=== PATIENT | female | born 1935 | race Caucasian/White ===

== ENCOUNTER 2019-06-06 17:34 | Inpatient (IN) | payer MEDICARE ==
[2019-06-06] MEDS: traMADol HCl 50 MG TAB PO PRN (20:50)
[2019-06-06] MEDS: Enoxaparin Sodium 60 MG/0.6 ML SYRINGE SC SCH (20:51)
[2019-06-06] MEDS: Senokot S 8.6-50 MG TAB PO SCH (20:51)
[2019-06-07] MEDS: Acetaminophen 325 MG TAB PO SCH ×4 (02:03→17:51)
[2019-06-07 05:50] LABS: Anion Gap 14 mmol/L (10-20); BUN (Urea Nitrogen) 9 mg/dL (9.8-20.1); Calc. Creatinine Clearance 73 mL/min (70-130); Carbon Dioxide 29 mmol/L (23-31); Chloride 97 mmol/L (98-107); Estimated GFR-MDRD Greater than 90; Glucose 123 mg/dL (83-110); Potassium 4.2 mmol/L (3.5-5.1); Sodium 136 mmol/L (136-145)
[2019-06-07 06:01] LABS: Band 2 % (5-11); Eosinophils 4 % (0-10); Hemoglobin 10.7 g/dL (12.0-16.0); Lymphocytes 6 % (21-51); MDiff Complete? YES; Mean Corpuscular HGB CONC 31.6 g/dL (32.0-36.0); Mean Corpuscular Hemoglobin 31.4 pg (27.0-31.0); Mean Corpuscular Volume 99.4 fL (78.0-98.0); Monocytes 6 % (0-10); Neutrophil 82 % (42-75); Platelet Count 319 thou/uL (130-400); Platelet Morphology Comment Appears Adequate; RBC Distribution Width 17.6 % (11.5-14.5); RBC Morphology Normal; Red Blood Cell (RBC) Count 3.41 mill/uL (4.20-5.40); White Blood Cell (WBC) Count 19.5 thou/uL (4.8-10.8)
[2019-06-07] MEDS: traMADol HCl 50 MG TAB PO PRN (07:33)
[2019-06-07] MEDS: CeleCOXIB 100 MG CAP PO SCH (09:21)
[2019-06-07] MEDS: Senokot S 8.6-50 MG TAB PO SCH ×2 (09:21→20:09)
[2019-06-07] MEDS: FLUoxetine HCl 20 MG CAP PO SCH (09:21)
[2019-06-07] MEDS: Enoxaparin Sodium 60 MG/0.6 ML SYRINGE SC SCH ×2 (09:22→20:09)
[2019-06-07] MEDS: Polyethylene Glycol 3350 17 GM Packet PO SCH (09:22)
--- NOTE | 2019-06-07 14:28 | HP ---
CHIEF COMPLAINT: Left hip fracture, status post fall, requiring intramedullary nailing and atrial fibrillation for therapy. BRIEF HISTORY: This is a pleasant 83-year-old female, who apparently fell while trying to get to the bathroom. She was evaluated in the emergency room and was noted to have a left hip fracture. She underwent intramedullary nailing. Her Coumadin levels were reversed with vitamin K. Postoperatively, she did have episode of atrial fibrillation with RVR requiring adjustment of medications including Cardizem and beta blockers. She was felt to be stable enough to come to us for therapy. She is currently being bridged with Lovenox until her INR becomes therapeutic. The patient is up in her chair and denies any complaints. She does have some dysphasia from her prior CVA. She denies any chest pain or shortness of breath. No family at bedside. PAST MEDICAL HISTORY: 1. Atrial fibrillation with RVR. 2. Adrenal insufficiency. 3. History of CVA. 4. Dyslipidemia. 5. Hypertension. 6. Frequent urinary tract infections. 7. Osteoarthritis. 8. Depression and anxiety. PAST SURGICAL HISTORY: 1. Right breast lumpectomy. 2. Recent left hip intramedullary nailing. PSYCHOSOCIAL HISTORY: Lives at home with her spouse, who is blind. No documented tobacco, alcohol, or recreational drug abuse. FAMILY HISTORY: Noncontributory to current admission. REVIEW OF SYSTEMS: CARDIOVASCULAR SYSTEM: Denies any chest pain, shortness of breath, palpitations, PND, orthopnea, or pedal edema. RESPIRATORY SYSTEM: Denies any chronic cough, expectoration, or pleuritic type chest pain. GASTROINTESTINAL SYSTEM: Denies any nausea, vomiting, diarrhea, constipation, hematemesis, melena, or hematochezia. GENITOURINARY SYSTEM: Denies any frequency, urgency, dysuria, or hematuria. CENTRAL NERVOUS SYSTEM: Some residual deficits from her prior CVA. EXTREMITIES: Does have frequent joint pains from her arthritis. HEENT: Denies any changes with vision, hearing, or swallowing. SKIN: Denies any rash. ALLERGIES: SHE IS ALLERGIC TO ESTROGEN, PENICILLIN, AND PROCAINE. DISCHARGE MEDICATIONS: 1. Tylenol 650 q.6 p.r.n. 2. Celebrex 100 mg daily. 3. Flexeril 5 mg t.i.d. p.r.n. 4. Cardizem CD 300 mg daily. 5. Enoxaparin 60 mg subcu b.i.d. 6. Fluoxetine 20 mg daily. 7. Toprol-XL 100 mg in the afternoon. 8. Zofran ODT q.6 p.r.n. 9. MiraLAX 17 g in 8 ounces of water daily. 10. Senokot S one tablet b.i.d. 11. Tramadol 50 to 100 mg q.6 p.r.n. 12. Warfarin 3 mg on Thursday, Thursday, Thursday, , Thursday and 1.5 mg on Thursday and Thursday. PHYSICAL EXAMINATION: GENERAL: Pleasant 83-year-old female up in her chair and denies any complaints. She is alert and responsive. No family at bedside. VITAL SIGNS: She is afebrile. Heart rate is 100 irregularly irregular, respiratory rate is 20, oxygen saturation 98% on 2 L nasal cannula, and blood pressure is 114/57. HEENT: Normocephalic and atraumatic. Pupils equally reactive to light and accommodation. NECK: No JVD, thyromegaly, cervical lymphadenopathy, or throat exudates. No carotid bruits. CARDIOVASCULAR SYSTEM: S1 and S2 plus irregularly irregular. RESPIRATORY SYSTEM: Normal vesicular breath sounds heard in all lung oates. ABDOMEN: Soft and nontender. Bowel sounds heard in all quadrants. EXTREMITIES: Without cyanosis or clubbing. Trace left leg edema. Left hip incision with dressing. CENTRAL NERVOUS SYSTEM: Awake and responsive. Residual deficits from her prior CVA. LABORATORY DATA: Laboratory values done this morning shows a white count of 19.5, hemoglobin and hematocrit are 10.7 and 33.9. Sodium 136, potassium 4.2, BUN and creatinine are 9 and 0.61. Her white count yesterday was 20.1 and the day before was 20.6. No microbiology reports are pending. Chest x-ray does not show any focal infiltrates suggestive of infection. IMPRESSION: 1. Left hip fracture, status post fall, requiring surgical fixation. 2. Atrial fibrillation with rapid ventricular response. 3. Hypertension. 4. Dyslipidemia. 5. Osteoarthritis. 6. History of cerebrovascular accident with residual deficits. 7. Leukocytosis. PLAN: 1. Continue discharge medications. 2. Check BNP. 3. PT, OT eval and treat. 4. Heart healthy diet. 5. Monitor heart rate and rhythm. 6. DVT prophylaxis. She is currently on Lovenox, but will be transitioned to warfarin once INR is greater than 2. 7. Decubitus precautions. 8. Stress ulcer prophylaxis. 9. Routine laboratory values. 10. Discussed with the patient and nursing in detail. All questions answered. Monitor for any signs or symptoms of infection. Job ID: [id number]
[2019-06-07] MEDS: Warfarin Sodium 3 MG TAB PO SCH (17:51)
[2019-06-08] MEDS: Acetaminophen 325 MG TAB PO SCH ×4 (00:06→17:38)
[2019-06-08] MEDS: Ondansetron ODT 4 MG TAB PO PRN ×2 (00:06→13:23)
[2019-06-08] MEDS: Cyclobenzaprine 10 MG TAB PO PRN (01:10)
[2019-06-08] MEDS: traMADol HCl 50 MG TAB PO PRN ×2 (04:17→20:46)
[2019-06-08 06:06] LABS: INR-International Normal Ratio 1.2; Prothrombin Time 15.3 SEC (12.0-14.7)
[2019-06-08] MEDS: Senokot S 8.6-50 MG TAB PO SCH ×2 (09:11→20:46)
[2019-06-08] MEDS: CeleCOXIB 100 MG CAP PO SCH (09:11)
[2019-06-08] MEDS: Enoxaparin Sodium 60 MG/0.6 ML SYRINGE SC SCH ×2 (09:12→20:47)
[2019-06-08] MEDS: Polyethylene Glycol 3350 17 GM Packet PO SCH (09:14)
[2019-06-08] MEDS: FLUoxetine HCl 20 MG CAP PO SCH (09:14)
[2019-06-08] MEDS: Warfarin Sodium 3 MG TAB PO SCH (17:37)
[2019-06-09] MEDS: Acetaminophen 325 MG TAB PO SCH ×5 (04:28→23:56)
[2019-06-09 06:23] LABS: INR-International Normal Ratio 1.3; Prothrombin Time 16.5 SEC (12.0-14.7)
[2019-06-09] MEDS: CeleCOXIB 100 MG CAP PO SCH (08:46)
[2019-06-09] MEDS: Enoxaparin Sodium 60 MG/0.6 ML SYRINGE SC SCH ×2 (08:47→21:13)
[2019-06-09] MEDS: Polyethylene Glycol 3350 17 GM Packet PO SCH (08:48)
[2019-06-09] MEDS: Senokot S 8.6-50 MG TAB PO SCH ×2 (08:48→21:12)
[2019-06-09] MEDS: FLUoxetine HCl 20 MG CAP PO SCH (08:48)
[2019-06-09] MEDS: traMADol HCl 50 MG TAB PO PRN ×2 (11:05→21:14)
--- NOTE | 2019-06-09 13:51 | PRG ---
DATE OF SERVICE: 06/08/2019 SUBJECTIVE: Ms. Brunner is resting in bed. Denies any complaints. Discussed with nursing. OBJECTIVE: VITAL SIGNS: She is afebrile, heart rate is 102 and irregularly irregular, respiratory rate is 18, oxygen saturation 98% on 1 L, blood pressure 123/65. CARDIOVASCULAR SYSTEM: S1 and S2 plus irregularly irregular. RESPIRATORY SYSTEM: Normal vesicular breath sounds. ABDOMEN: Soft, nontender. Bowel sounds heard in all quadrants. EXTREMITIES: Without cyanosis or clubbing. Peripheral pulses are palpable. CENTRAL NERVOUS SYSTEM: Awake and responsive. IMPRESSION: 1. Atrial fibrillation with rapid ventricular response. 2. Left hip fracture, status post intramedullary nailing. 3. Dyslipidemia. 4. Hypertension. 5. Osteoarthritis. 6. Depression and anxiety. PLAN: 1. Continue current medications. 2. Nutritional support. 3. Heart-healthy diet. 4. Monitor heart rate and rhythm. 5. DVT prophylaxis. She is on warfarin. 6. Decubitus precaution. 7. Stress ulcer prophylaxis. 8. Routine laboratory values. 9. Physical therapy. Job ID: [id number]
--- NOTE | 2019-06-09 14:09 | PRG ---
DATE OF SERVICE: 06/09/2019 SUBJECTIVE: Ms. Brunner has been moved to [facility]. She is resting in bed. She ate half of her lunch. No family at bedside. Denies any questions or concerns. OBJECTIVE: VITAL SIGNS: She is afebrile. Heart rate is 95, respirations 20, oxygen saturation 94% on 3 L, and blood pressure 120/58. CARDIOVASCULAR: S1, S2 plus. RESPIRATORY: Normal vesicular breath sounds. ABDOMEN: Soft, nontender. Bowel sounds heard in all quadrants. EXTREMITIES: Without cyanosis or clubbing. Trace left leg edema. CENTRAL NERVOUS SYSTEM: Awake and responsive. Cranial nerves 2 through 12 intact. Generalized weakness. LABORATORY DATA: Her INR is 1.3. IMPRESSION: 1. Left hip fracture, status post surgical fixation. 2. Atrial fibrillation. 3. Hypertension. 4. Osteoarthritis. 5. Depression and anxiety. PLAN: 1. Continue Lovenox until INR is greater than 2. 2. Monitor heart rate and rhythm. 3. Physical therapy. 4. Orthopedic precautions. 5. Nutritional support. 6. Routine laboratory values. 7. DVT and stress ulcer prophylaxis. Job ID: [id number]
[2019-06-09] MEDS: Warfarin Sodium 3 MG TAB PO SCH (17:19)
[2019-06-10] MEDS: Acetaminophen 325 MG TAB PO SCH ×4 (05:20→23:58)
[2019-06-10 06:15] LABS: INR-International Normal Ratio 1.3; Prothrombin Time 16.4 SEC (12.0-14.7)
[2019-06-10] MEDS: Polyethylene Glycol 3350 17 GM Packet PO SCH (09:39)
[2019-06-10] MEDS: CeleCOXIB 100 MG CAP PO SCH (09:39)
[2019-06-10] MEDS: Senokot S 8.6-50 MG TAB PO SCH ×2 (09:39→20:27)
[2019-06-10] MEDS: FLUoxetine HCl 20 MG CAP PO SCH (09:39)
[2019-06-10] MEDS: Enoxaparin Sodium 60 MG/0.6 ML SYRINGE SC SCH ×2 (09:40→20:26)
[2019-06-10] MEDS: traMADol HCl 50 MG TAB PO PRN (17:01)
[2019-06-10] MEDS: Warfarin Sodium 3 MG TAB PO SCH (17:37)
[2019-06-10] MEDS: Cyclobenzaprine 10 MG TAB PO PRN (20:25)
[2019-06-10 22:16] LABS: Bilirubin Negative (Negative); Blood, Urine Negative (Negative); Clarity Clear (Clear); Glucose, Urine (Dipstick) Negative (Negative); Leukocyte Negative (Negative); Nitrite Negative (Negative); Protein, Urine (Dipstick) Negative (Neg-Trace)
[2019-06-10 22:26] LABS: Bacteria/HPF None Seen HPF (None Seen); RBC/HPF None Seen HPF (0-3); Squamous Epithelial 0-3 HPF (0-3); WBC/HPF None Seen HPF (0-3)
[2019-06-11] MEDS: Ondansetron ODT 4 MG TAB PO PRN (00:35)
[2019-06-11] MEDS: Acetaminophen 325 MG TAB PO SCH ×4 (05:33→23:13)
[2019-06-11 06:10] LABS: INR-International Normal Ratio 1.2; Prothrombin Time 15.4 SEC (12.0-14.7)
[2019-06-11] MEDS: CeleCOXIB 100 MG CAP PO SCH (09:20)
[2019-06-11] MEDS: Senokot S 8.6-50 MG TAB PO SCH ×2 (09:20→20:45)
[2019-06-11] MEDS: FLUoxetine HCl 20 MG CAP PO SCH (09:20)
[2019-06-11] MEDS: Polyethylene Glycol 3350 17 GM Packet PO SCH (09:20)
[2019-06-11] MEDS: Enoxaparin Sodium 60 MG/0.6 ML SYRINGE SC SCH ×2 (09:21→20:45)
[2019-06-11] MEDS: traMADol HCl 50 MG TAB PO PRN (09:24)
[2019-06-11] MEDS: Warfarin Sodium 3 MG TAB PO SCH (17:20)
[2019-06-12] MEDS: Acetaminophen 325 MG TAB PO SCH ×4 (05:39→23:24)
[2019-06-12 06:02] LABS: INR-International Normal Ratio 1.2; Prothrombin Time 14.8 SEC (12.0-14.7)
[2019-06-12] MEDS: FLUoxetine HCl 20 MG CAP PO SCH (09:04)
[2019-06-12] MEDS: Polyethylene Glycol 3350 17 GM Packet PO SCH (09:05)
[2019-06-12] MEDS: Senokot S 8.6-50 MG TAB PO SCH ×2 (09:05→20:46)
[2019-06-12] MEDS: Enoxaparin Sodium 60 MG/0.6 ML SYRINGE SC SCH ×2 (09:05→20:48)
[2019-06-12] MEDS: CeleCOXIB 100 MG CAP PO SCH (09:05)
[2019-06-12] MEDS ORDERED: traMADol HCl 50 MG TAB ONE ×2 (09:09)
[2019-06-12] MEDS: Cyclobenzaprine 10 MG TAB PO PRN (09:10)
[2019-06-12] MEDS: traMADol HCl 50 MG TAB PO PRN (09:11)
[2019-06-12] MEDS: Warfarin Sodium 3 MG TAB PO SCH (17:54)
--- NOTE | 2019-06-12 22:06 | PRG ---
DATE OF SERVICE: 06/11/2019 SUBJECTIVE: The patient feels well, status post left hip fracture and surgical fixation. She is resting in bed, somewhat sleepy. No family at the bedside. No complaints. OBJECTIVE: VITAL SIGNS: Show blood pressure is 114/55, temperature is 97, pulse 87, respirations 18, O2 saturations 98% on room air. LUNGS: Clear. CARDIAC: Shows regular rhythm. ABDOMEN: Soft and nontender. SKIN: Left hip appears to be healing well. ASSESSMENT: 1. Left hip fracture, healing well. 2. Atrial fibrillation. 3. Hypertension. 4. Depression and anxiety. PLAN: 1. Continue PT/OT. 2. Continue rate control and anticoagulation of atrial fibrillation. 3. Continue to monitor vital signs closely. Job ID: [id number]
--- NOTE | 2019-06-12 22:15 | PRG ---
DATE OF SERVICE: 06/12/2019 SUBJECTIVE: The patient lying in bed, resting. No complaints, ready for more therapy tomorrow. OBJECTIVE: VITAL SIGNS: Temperature is 97.3, pulse 104, respirations 18, O2 sats 98% on 2, and blood pressure 134/71. EXTREMITIES: Left hip appears to be healing well. LABORATORY DATA: Urine culture is showing 25,000 to 50,0000 mixed peng. ASSESSMENT: 1. Resolving hip fracture, status post open reduction and internal fixation. 2. Deconditioning, improving with therapy. 3. Depression and anxiety, stable. 4. Atrial fibrillation with rate control, but inadequate anticoagulation. PLAN: Check CBC, comprehensive metabolic panel, PT in the a.m. Continue previous medications. Continue PT and OT. Job ID: [id number]
[2019-06-13] MEDS: Acetaminophen 325 MG TAB PO SCH ×3 (05:15→17:36)
[2019-06-13 05:32] LABS: INR-International Normal Ratio 1.2; Prothrombin Time 15.1 SEC (12.0-14.7)
[2019-06-13 05:45] LABS: ALT (SGPT) 15 U/L (8-55); AST (SGOT) 26 U/L (5-34); Albumin 3.5 g/dL (3.4-4.8); Alkaline Phosphatase 136 U/L (40-110); Anion Gap 14 mmol/L (10-20); BUN (Urea Nitrogen) 17 mg/dL (9.8-20.1); Calc. Creatinine Clearance 64 mL/min (70-130); Calcium 8.9 mg/dL (7.8-10.44); Carbon Dioxide 31 mmol/L (23-31); Chloride 96 mmol/L (98-107); Estimated GFR-MDRD 82; Globulin 3.3 g/dL (2.4-3.5); Glucose 115 mg/dL (83-110); Potassium 4.4 mmol/L (3.5-5.1); Protein, Total 6.8 g/dL (6.0-8.3); Sodium 137 mmol/L (136-145)
[2019-06-13 05:53] LABS: Band 20 % (5-11); Hypochromia MODERATE=16-30 cells (100X) (0-5/hpf); Lymphocytes 9 % (21-51); MDiff Complete? YES; Macrocytosis SLIGHT = 6-15 cells (100X) (0-5/hpf); Mean Corpuscular HGB CONC 30.8 g/dL (32.0-36.0); Mean Corpuscular Hemoglobin 31.5 pg (27.0-31.0); Mean Platelet Volume 6.6 fL (7.4-10.4); Metamyelocyte 7 % (0-0); Monocytes 3 % (0-10); Myelocyte 1 % (0-0); Neutrophil 59 % (42-75); Nucleated RBC 2 % (0); Platelet Count 344 thou/uL (130-400); Platelet Morphology Comment Appears Adequate; RBC Distribution Width 19.5 % (11.5-14.5); Red Blood Cell (RBC) Count 3.19 mill/uL (4.20-5.40); White Blood Cell (WBC) Count 17.6 thou/uL (4.8-10.8)
[2019-06-13] MEDS: CeleCOXIB 100 MG CAP PO SCH (08:52)
[2019-06-13] MEDS: Polyethylene Glycol 3350 17 GM Packet PO SCH (08:53)
[2019-06-13] MEDS: Senokot S 8.6-50 MG TAB PO SCH ×2 (08:53→20:40)
[2019-06-13] MEDS: FLUoxetine HCl 20 MG CAP PO SCH (08:53)
[2019-06-13] MEDS: Enoxaparin Sodium 60 MG/0.6 ML SYRINGE SC SCH ×2 (08:53→20:37)
--- NOTE | 2019-06-13 13:50 | PRG ---
DATE OF SERVICE: 06/13/2019 SUBJECTIVE: Ms. Brunner is sleeping, but arousable. Continues to have some dysphasia. Apparently, doing pretty well with therapy. Discussed with nursing. No family at bedside. OBJECTIVE: VITAL SIGNS: She is afebrile, heart rate 104, respirations 18, oxygen saturation 99% on 2 L, blood pressure 129/63. CARDIOVASCULAR: S1 and S2 plus. RESPIRATORY: Normal vesicular breath sounds. ABDOMEN: Soft, nontender. Bowel sounds heard in all quadrants. EXTREMITIES: Without cyanosis or clubbing. CENTRAL NERVOUS SYSTEM: Awake and responsive. Generalized weakness. LABORATORY VALUES: White count is down to 17.6, H and H are 10 and 32.6. Sodium 137, potassium 4.4, BUN and creatinine are 17 and 0.69. Urine culture is 25,000 to 50,000 mixed skin peng. IMPRESSION: 1. Left hip fracture, status post surgical fixation. 2. Atrial fibrillation. 3. Hypertension. 4. Osteoarthritis. 5. Depression and anxiety. 6. Dysphasia, chronic. PLAN: 1. Continue current medications. Current INR is still 1.2. We will adjust warfarin. 2. Heart healthy diet. 3. Orthopedic precautions. 4. Nutritional support. 5. Routine laboratory values. 6. Stress ulcer prophylaxis. 7. Decubitus precautions. Job ID: [id number]
[2019-06-13] MEDS: Warfarin Sodium 5 MG TAB PO SCH (16:38)
[2019-06-13] MEDS: traMADol HCl 50 MG TAB PO PRN (16:39)
[2019-06-13] MEDS ORDERED: Warfarin Sodium 3 MG TAB PO SCH (17:00)
[2019-06-14] MEDS: Acetaminophen 325 MG TAB PO SCH ×5 (00:16→22:27)
[2019-06-14] MEDS: CeleCOXIB 100 MG CAP PO SCH (08:41)
[2019-06-14] MEDS: Enoxaparin Sodium 60 MG/0.6 ML SYRINGE SC SCH ×2 (08:41→20:45)
[2019-06-14] MEDS: FLUoxetine HCl 20 MG CAP PO SCH (08:42)
[2019-06-14] MEDS: Polyethylene Glycol 3350 17 GM Packet PO SCH (08:42)
[2019-06-14] MEDS: Senokot S 8.6-50 MG TAB PO SCH ×3 (08:42→22:26)
[2019-06-14] MEDS: Warfarin Sodium 5 MG TAB PO SCH (17:19)
[2019-06-14] MEDS: traMADol HCl 50 MG TAB PO PRN (22:26)
[2019-06-15] MEDS: Acetaminophen 325 MG TAB PO SCH ×5 (05:13→21:05)
[2019-06-15 08:14] LABS: INR-International Normal Ratio 1.8; Prothrombin Time 20.7 SEC (12.0-14.7)
[2019-06-15] MEDS: FLUoxetine HCl 20 MG CAP PO SCH (09:29)
[2019-06-15] MEDS: CeleCOXIB 100 MG CAP PO SCH (09:29)
[2019-06-15] MEDS: Enoxaparin Sodium 60 MG/0.6 ML SYRINGE SC SCH ×2 (09:29→20:18)
[2019-06-15] MEDS: Polyethylene Glycol 3350 17 GM Packet PO SCH (09:29)
[2019-06-15] MEDS: Senokot S 8.6-50 MG TAB PO SCH ×2 (09:30→20:18)
--- NOTE | 2019-06-15 13:21 | PRG ---
DATE OF SERVICE: 06/14/2019 SUBJECTIVE: Ms. Brunner is doing well. Sleeping, but arousable. Denies any questions or concerns. OBJECTIVE: VITAL SIGNS: She is afebrile, heart rate is 113, irregularly irregular, respiratory rate is 20, oxygen saturation 94% on room air, blood pressure 124/66. CARDIOVASCULAR SYSTEM: S1 and S2 plus irregularly irregular. RESPIRATORY SYSTEM: Normal vesicular breath sounds heard in all lung oates. ABDOMEN: Soft and nontender. Bowel sounds heard in all quadrants. EXTREMITIES: Without cyanosis or clubbing. Peripheral pulses are palpable CENTRAL NERVOUS SYSTEM: Grossly nonfocal except for chronic dysphasia. LABORATORY DATA: Laboratory value shows an INR of 1.8. IMPRESSION: 1. Atrial fibrillation. 2. Hypertension. 3. Osteoarthritis. 4. Depression and anxiety. 5. Dysphagia, chronic. PLAN: 1. Continue current medications. 2. Nutritional support with heart healthy diet. 3. Orthopedic precautions. 4. DVT and stress ulcer prophylaxis. She is on warfarin and Lovenox. 5. Decubitus precaution. 6. Monitor heart rate and rhythm. 7. Therapy. Job ID: [id number]
--- NOTE | 2019-06-15 13:21 | PRG ---
DATE OF SERVICE: 06/15/2019 SUBJECTIVE: Ms. Brunner is up in her chair and just finished her lunch. She denies any questions or concerns. She is happy with her progress. OBJECTIVE: VITAL SIGNS: She is afebrile, heart rate is 103, respirations 20, oxygen saturation 95% on room air, and blood pressure 118/75. CARDIOVASCULAR SYSTEM: S1 and S2 plus. Irregularly irregular. RESPIRATORY SYSTEM: Normal vesicular breath sounds heard in all lung oates. ABDOMEN: Soft and nontender. Bowel sounds in all quadrants. EXTREMITIES: Without cyanosis or clubbing. CENTRAL NERVOUS SYSTEM: Grossly nonfocal. IMPRESSION: 1. Atrial fibrillation. 2. Left hip fracture, status post open reduction and internal fixation. 3. Dyslipidemia. 4. Hypertension. 5. Osteoarthritis. 6. 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 PLAN: 1. Continue current medications. 2. Nutritional support. 3. Orthopedic precautions. 4. Monitor heart rate and rhythm. 5. Adjust warfarin. 6. Monitor INR. 7. Continue Lovenox until INR is greater than 2. 8. Continue therapy. Job ID: [id number]
[2019-06-15] MEDS: Warfarin Sodium 5 MG TAB PO SCH (17:42)
[2019-06-15] MEDS: traMADol HCl 50 MG TAB PO PRN (21:05)
[2019-06-16] MEDS: Acetaminophen 325 MG TAB PO SCH ×3 (05:45→17:27)
[2019-06-16 06:03] LABS: INR-International Normal Ratio 2.1; Prothrombin Time 23.1 SEC (12.0-14.7)
[2019-06-16 06:15] LABS: Anion Gap 15 mmol/L (10-20); BUN (Urea Nitrogen) 14 mg/dL (9.8-20.1); Calc. Creatinine Clearance 65 mL/min (70-130); Carbon Dioxide 25 mmol/L (23-31); Chloride 102 mmol/L (98-107); Estimated GFR-MDRD 83; Glucose 126 mg/dL (83-110); Hemoglobin 10.7 g/dL (12.0-16.0); Hypochromia SLIGHT = 6-15 cells (100X) (0-5/hpf); MDiff Complete? YES; Macrocytosis SLIGHT = 6-15 cells (100X) (0-5/hpf); Mean Corpuscular HGB CONC 31.9 g/dL (32.0-36.0); Mean Corpuscular Hemoglobin 33.2 pg (27.0-31.0); Platelet Count 385 thou/uL (130-400); Platelet Morphology Comment Appears Adequate; Potassium 4.4 mmol/L (3.5-5.1); RBC Distribution Width 20.5 % (11.5-14.5); Red Blood Cell (RBC) Count 3.23 mill/uL (4.20-5.40); Sodium 138 mmol/L (136-145); White Blood Cell (WBC) Count 15.8 thou/uL (4.8-10.8)
[2019-06-16] MEDS: Enoxaparin Sodium 60 MG/0.6 ML SYRINGE SC SCH (07:50)
[2019-06-16] MEDS: FLUoxetine HCl 20 MG CAP PO SCH (08:55)
[2019-06-16] MEDS: Senokot S 8.6-50 MG TAB PO SCH ×2 (08:55→21:04)
[2019-06-16] MEDS: CeleCOXIB 100 MG CAP PO SCH (08:56)
[2019-06-16] MEDS: Polyethylene Glycol 3350 17 GM Packet PO SCH (08:56)
--- NOTE | 2019-06-16 14:23 | PRG ---
DATE OF SERVICE: 06/16/2019 SUBJECTIVE: Ms. Brunner is doing the same. Denies any complaints. Resting comfortably. Discussed with therapy and they want to make sure she has some help at home, but they said she is pretty close to being ready for discharge. OBJECTIVE: VITAL SIGNS: She is afebrile. Heart rate is 89, respirations 18, oxygen saturation 93% on room air, and blood pressure 116/66. CARDIOVASCULAR SYSTEM: S1 and S2 plus. RESPIRATORY SYSTEM: Normal vesicular breath sounds. ABDOMEN: Soft and nontender. Bowel sounds heard in all quadrants. EXTREMITIES: Without cyanosis or clubbing. Peripheral pulses are palpable. CENTRAL NERVOUS SYSTEM: Improving deconditioning. LABORATORY VALUES: Her INR is 2.1. Sodium 138, potassium 4.4, BUN and creatinine are 14 and 0.68. White count is down to 15.8, H and H are 10.7 and 33.5. IMPRESSION: 1. Left hip fracture, status post open reduction and internal fixation. 2. Atrial fibrillation with rapid ventricular response. 3. Dyslipidemia. 4. Hypertension. 5. Osteoarthritis. 6. Dysphagia from old cerebrovascular accident. PLAN: 1. Stop Lovenox. 2. Heart healthy diet. 3. Monitor heart rate and rhythm. 4. Consult Case Management for discharge planning. 5. Continue warfarin 5 mg daily. 6. Continue therapy. 7. Discussed with the patient and therapy as well as nursing. Job ID: [id number]
[2019-06-16] MEDS: Warfarin Sodium 5 MG TAB PO SCH (17:27)
[2019-06-17] MEDS: Acetaminophen 325 MG TAB PO SCH ×5 (00:13→20:36)
[2019-06-17 05:32] LABS: INR-International Normal Ratio 2.4; Prothrombin Time 25.8 SEC (12.0-14.7)
[2019-06-17] MEDS: CeleCOXIB 100 MG CAP PO SCH (08:57)
[2019-06-17] MEDS: Polyethylene Glycol 3350 17 GM Packet PO SCH (08:57)
[2019-06-17] MEDS: FLUoxetine HCl 20 MG CAP PO SCH (08:57)
[2019-06-17] MEDS: Senokot S 8.6-50 MG TAB PO SCH ×2 (08:57→20:36)
[2019-06-17] MEDS: Warfarin Sodium 5 MG TAB PO SCH (17:06)
[2019-06-17] MEDS: traMADol HCl 50 MG TAB PO PRN (17:10)
[2019-06-18] MEDS: Acetaminophen 325 MG TAB PO SCH ×3 (05:23→17:32)
[2019-06-18 05:45] LABS: INR-International Normal Ratio 2.4; Prothrombin Time 26.3 SEC (12.0-14.7)
[2019-06-18] MEDS: CeleCOXIB 100 MG CAP PO SCH (08:53)
[2019-06-18] MEDS: FLUoxetine HCl 20 MG CAP PO SCH (08:54)
[2019-06-18] MEDS: Senokot S 8.6-50 MG TAB PO SCH ×2 (08:54→20:53)
[2019-06-18] MEDS: Polyethylene Glycol 3350 17 GM Packet PO SCH (08:54)
[2019-06-18] MEDS: Warfarin Sodium 5 MG TAB PO SCH (17:31)
[2019-06-19] MEDS: Acetaminophen 325 MG TAB PO SCH ×4 (00:12→17:33)
[2019-06-19 00:17] VITALS: BMI 23.7
[2019-06-19 05:41] LABS: INR-International Normal Ratio 2.7; Prothrombin Time 28.4 SEC (12.0-14.7)
[2019-06-19] MEDS: CeleCOXIB 100 MG CAP PO SCH (08:13)
[2019-06-19] MEDS: FLUoxetine HCl 20 MG CAP PO SCH (08:14)
[2019-06-19] MEDS: Senokot S 8.6-50 MG TAB PO SCH ×2 (08:14→20:50)
[2019-06-19] MEDS: Polyethylene Glycol 3350 17 GM Packet PO SCH (08:14)
[2019-06-19] MEDS: Warfarin Sodium 5 MG TAB PO SCH (17:33)
[2019-06-20] MEDS: Acetaminophen 325 MG TAB PO SCH ×4 (00:11→17:31)
[2019-06-20] MEDS: traMADol HCl 50 MG TAB PO PRN ×2 (00:12→09:33)
[2019-06-20 05:47] LABS: INR-International Normal Ratio 2.6; Prothrombin Time 27.8 SEC (12.0-14.7)
[2019-06-20] MEDS: Senokot S 8.6-50 MG TAB PO SCH (09:25)
[2019-06-20] MEDS: Polyethylene Glycol 3350 17 GM Packet PO SCH (09:25)
[2019-06-20] MEDS: FLUoxetine HCl 20 MG CAP PO SCH (09:25)
[2019-06-20] MEDS: CeleCOXIB 100 MG CAP PO SCH (09:29)
--- NOTE | 2019-06-20 13:35 | PRG ---
DATE OF SERVICE: 06/20/2019 SUBJECTIVE: Ms. Brunner is resting in bed. Denies any complaints. Discussed with therapy and they stated the patient should be ready to be discharged with possible home health later this week. OBJECTIVE: VITAL SIGNS: She is afebrile. Heart rate 92, respirations 20, oxygen saturation 95% on room air, blood pressure 120/57. CARDIOVASCULAR SYSTEM: S1 and S2 plus. RESPIRATORY SYSTEM: Normal vesicular breath sounds. ABDOMEN: Soft, nontender. Bowel sounds heard in all quadrants. EXTREMITIES: Without cyanosis or clubbing. Peripheral pulses are palpable. CENTRAL NERVOUS SYSTEM: Grossly nonfocal. IMPRESSION: 1. Left hip fracture, status post open reduction and internal fixation. 2. Atrial fibrillation with rapid ventricular response, now well controlled. 3. Dyslipidemia. 4. Hypertension. 5. Osteoarthritis. 6. Dysphagia from old cerebrovascular accident. PLAN: 1. Continue current medications. 2. Therapeutic warfarin. 3. Physical therapy. 4. Orthopedic precautions. 5. Monitor heart rate and rhythm. 6. Nutritional support. 7. Discharge planning. Job ID: [id number]
[2019-06-20] MEDS: Warfarin Sodium 5 MG TAB PO SCH (17:31)
[2019-06-21] MEDS: traMADol HCl 50 MG TAB PO PRN ×2 (00:04→09:46)
[2019-06-21] MEDS: Acetaminophen 325 MG TAB PO SCH ×3 (00:04→12:45)
[2019-06-21] MEDS: Senokot S 8.6-50 MG TAB PO SCH ×2 (00:05→09:37)
[2019-06-21 05:46] LABS: INR-International Normal Ratio 3.1
[2019-06-21 08:02] VITALS: BP 108/56; TEMP 97.7
[2019-06-21] MEDS: CeleCOXIB 100 MG CAP PO SCH (09:36)
[2019-06-21] MEDS: FLUoxetine HCl 20 MG CAP PO SCH (09:37)
[2019-06-21] MEDS: Polyethylene Glycol 3350 17 GM Packet PO SCH (09:37)
--- NOTE | 2019-06-21 14:29 | DIS ---
DATE OF ADMISSION: 06/06/2019 DATE OF DISCHARGE: 06/21/2019 PRINCIPAL DIAGNOSIS: Left hip fracture, status post open reduction and internal fixation. SECONDARY DIAGNOSES: 1. Atrial fibrillation. 2. Adrenal insufficiency. 3. Dyslipidemia. 4. Hypertension. 5. Osteoarthritis. 6. Depression and anxiety. 7. History of cerebrovascular accident with persistent dysphasia. COMPLICATIONS: None. ADVERSE REACTIONS: None. PROCEDURES: None. CONSULTATIONS: Physical Therapy and Occupational Therapy. HOSPITAL COURSE: The patient was transferred here after a fall resulting in left hip fracture. She underwent intramedullary nailing. She did develop atrial fibrillation postoperatively requiring adjustment of medications. She was transitioned to Lovenox for the surgery and was resumed back on her warfarin. Her INR is therapeutic, and she is off her Lovenox. She normally takes 3 mg whole tablet alternating with half tablet, but that did not work for her here. She has been on 5 mg, where she is currently getting supratherapeutic, so she probably will do well on 3 mg daily. PHYSICAL EXAMINATION: VITAL SIGNS: On the day of discharge, the patient is afebrile, heart rate is 79, respirations 18, oxygen saturation 95% on room air, and blood pressure 108/56. CARDIOVASCULAR SYSTEM: S1 and S2 plus. RESPIRATORY SYSTEM: Normal vesicular breath sounds. ABDOMEN: Soft and nontender. Bowel sounds heard in all quadrants. EXTREMITIES: Without cyanosis or clubbing. Left hip incision is healthy. CENTRAL NERVOUS SYSTEM: Awake and responsive. Persistent dysphasia. Grossly nonfocal from a motor system standpoint. LABORATORY DATA: Last laboratory values were done on June 16, where her white count was down to 15.8, it was as high as 19.5, H and H are 10.7 and 33.5. INR today is 3.1. Chemistry; sodium 138, potassium 4.4, BUN and creatinine are 14 and 0.68. DISCHARGE MEDICATIONS: 1. Tylenol 650 q.6 p.r.n. 2. Celebrex 100 mg daily. 3. Cardizem CD 180 mg daily. 4. Prozac 20 mg daily. 5. Toprol-XL 100 mg daily. 6. MiraLAX 17 g in 8 ounces of water daily. 7. Warfarin 3 mg daily. 8. Tramadol 50 mg p.o. q.6 p.r.n. and I will be sending that separately through my EMR. All the other prescriptions were sent for a month's supply to [facility] here in [place] since it is raining. Her usual preferred pharmacy is [email or web address], but I spoke to her caregiver, Clair Nugent. DISCHARGE INSTRUCTIONS: 1. Continue heart healthy diet. 2. Orthopedic precautions. 3. Consult home health for home PT/OT. 4. Outpatient followup with PCP in the next 5 to 7 days and outpatient followup with Orthopedic Surgery in 2 weeks. Family was advised to call us with any questions or concerns. For full details, please see chart. Total time spent on this discharge 35 minutes. Job ID: [id number]
[2019-06-21] MEDS ORDERED: Warfarin Sodium 5 MG TAB PO SCH (17:00)
== END 2019-06-21 14:30 | disposition home health service (06) | DRG 560 ==
LOC: NAV ACUTE 17:34
PROVIDERS: ADMIT Internal Medicine; ATTEND Internal Medicine
DX: S72.002D Fracture of unspecified part of neck of left femur, subsequent encounter for closed fracture with routine healing (principal); E27.40 Unspecified adrenocortical insufficiency; I97.191 Other postprocedural cardiac functional disturbances following other surgery; E78.5 Hyperlipidemia, unspecified; I10 Essential (primary) hypertension; M19.91 Primary osteoarthritis, unspecified site; F32.9 Major depressive disorder, single episode, unspecified; F41.9 Anxiety disorder, unspecified; Z79.01 Long term (current) use of anticoagulants; Z79.899 Other long term (current) drug therapy; Z88.0 Allergy status to penicillin; Z88.8 Allergy status to other drugs, medicaments and biological substances; D72.829 Elevated white blood cell count, unspecified; W18.30XD Fall on same level, unspecified, subsequent encounter; I69.391 Dysphagia following cerebral infarction; R13.10 Dysphagia, unspecified; R53.81 Other malaise
CPT/HCPCS: 36415; 80048; 80053; 81001; 83880; 85025; 85610; 87086; J1650; Q0162

== ENCOUNTER 2019-10-24 10:30 | Emergency (ER) | payer MEDICARE ==
[2019-10-24] MEDS ORDERED: Cefepime 2 GM VIAL ONE (11:56)
[2019-10-24 12:07] LABS: ALT (SGPT) 22 U/L (8-55); AST (SGOT) 24 U/L (5-34); Albumin 4.2 g/dL (3.4-4.8); Alkaline Phosphatase 130 U/L (40-110); Anion Gap 15 mmol/L (10-20); BUN (Urea Nitrogen) 18 mg/dL (9.8-20.1); Bilirubin, Total 0.8 mg/dL (0.2-1.2); Calc. Creatinine Clearance 0 mL/min (70-130); Calcium 8.9 mg/dL (7.8-10.44); Carbon Dioxide 28 mmol/L (23-31); Chloride 101 mmol/L (98-107); Estimated GFR-MDRD 71; Globulin 3.3 g/dL (2.4-3.5); Glucose 114 mg/dL (83-110); Potassium 4.3 mmol/L (3.5-5.1); Protein, Total 7.5 g/dL (6.0-8.3); Sodium 140 mmol/L (136-145)
[2019-10-24 12:09] LABS: Hemoglobin 12.4 g/dL (12.0-16.0); Mean Corpuscular HGB CONC 30.7 g/dL (32.0-36.0); Mean Corpuscular Hemoglobin 29.9 pg (27.0-31.0); Mean Corpuscular Volume 97.2 fL (78.0-98.0); Mean Platelet Volume 8.2 fL (7.4-10.4); Platelet Count 392 thou/uL (130-400); RBC Distribution Width 17.2 % (11.5-14.5); Red Blood Cell (RBC) Count 4.16 mill/uL (4.20-5.40); White Blood Cell (WBC) Count 11.7 thou/uL (4.8-10.8)
[2019-10-24 12:12] LABS: %Lymphocytes 11.3 % (21.0-51.0); %Monocytes 4.3 % (0.0-10.0); %Neutrophils 77.8 % (42.0-75.0)
[2019-10-24 12:13] LABS: #Basophils 0.7 thou/uL (0.0-0.2); #Eosinphils 0.1 thou/uL (0.0-0.7); #Lymphocytes 1.3 thou/uL (1.20-3.40); #Monocytes 0.5 thou/uL (0.11-0.59); #Neutrophils 9.1 thou/uL (1.40-6.50); %Basophils 5.7 % (0.0-1.0)
== END 2019-10-24 13:07 | disposition home or self-care (01) ==
LOC: NAV ERS 10:30
DX: L03.116 Cellulitis of left lower limb (principal); L03.115 Cellulitis of right lower limb; I48.20 Chronic atrial fibrillation, unspecified; E78.5 Hyperlipidemia, unspecified; E78.00 Pure hypercholesterolemia, unspecified; I10 Essential (primary) hypertension; Z79.899 Other long term (current) drug therapy; Z79.01 Long term (current) use of anticoagulants
CPT/HCPCS: 80053; 82550; 83605; 84484; 85025; 87040; 93005; 96365; 96375; J0692

== ENCOUNTER 2020-02-18 12:44 | Inpatient (IN) | payer MEDICARE ==
[2020-02-18 13:23] VITALS: BMI 22.0
[2020-02-18] MEDS ORDERED: Zolpidem Tartrate 5 MG TAB PO PRN (15:25)
[2020-02-18] MEDS ORDERED: Milk Of Magnesia 30 ML UDCUP PO PRN (15:25)
--- NOTE | 2020-02-18 16:08 | HP ---
CHIEF COMPLAINT: The patient with right hip fracture, status post surgical fixation for therapy. BRIEF HISTORY: This is a pleasant 84-year-old female, who is known to me from her previous admission here to [facility]. She apparently fell at home and noticed right hip pain. Workup in the emergency room showed a right hip fracture. She was also noted to be therapeutic on her warfarin. CT scan was done and it showed a right-sided pleural effusion and bilateral ground-glass opacities. She was empirically started on ceftriaxone and Zithromax. Her coagulopathy was reversed with vitamin K. She underwent surgical fixation of her hip without any issues. She has remained afebrile. A COVID-19 test was done, which was negative. She was felt to need therapy and so was referred here. Since she had this ground-glass opacities, it was felt that it is safer to get Infectious Disease opinion before we got her transferred over here. Dr. Wallace spoke with Dr. Cartwright and apparently Dr. Cartwright is comfortable that this is not COVID-19 and the patient should be fine. Plan is to continue empiric Levaquin for about 5 more days. She is back on her warfarin. The patient is currently resting in bed and denies any concerns. She does have chronic dysphagia. No issues with swallowing. No family at bedside. Discussed with nursing. PAST MEDICAL HISTORY: 1. Atrial fibrillation. 2. Hypertension. 3. Dyslipidemia. 4. History of CVA and TIA. 5. History of breast cancer. 6. History of anxiety and depression. 7. Osteoarthritis. PAST SURGICAL HISTORY: 1. Left hip fracture, status post surgical fixation. 2. Breast lumpectomy. FAMILY HISTORY: Noncontributory to current admission. ALLERGIES: SHE IS ALLERGIC TO PENICILLIN, ESTROGEN, AND PROCAINE. REVIEW OF SYSTEMS: CARDIOVASCULAR: Denies any chest pain, shortness of breath, palpitations, PND, orthopnea, or pedal edema. RESPIRATORY SYSTEM: Denies any chronic cough, expectoration, or pleuritic-type chest pain. GASTROINTESTINAL SYSTEM: Denies any nausea, vomiting, diarrhea, constipation, hematemesis, melena, or hematochezia. GENITOURINARY SYSTEM: Denies any frequency, urgency, dysuria, or hematuria. She does have a history of frequent urinary tract infections. CENTRAL NERVOUS SYSTEM: Denies any focal numbness, weakness, or fainting spells. She does have the residual chronic dysphagia from her prior CVA. Denies any issues with swallowing. EXTREMITIES: Complains of right hip pain. SKIN: Denies any rash. HEENT: Denies any difficulty with vision, hearing, or swallowing. PSYCHOSOCIAL HISTORY: Denies any tobacco, alcohol, or recreational drug abuse. Her spouse recently . Her daughter helps her. MEDICATIONS: She has been transferred here on the following medications: 1. Tylenol 650 q.6 hours p.r.n. 2. Calcium carbonate. 3. Vitamin D3 one tablet b.i.d. 4. Cardizem CD (diltiazem), I have both 180 and 120 mg immediate release for the morning. I will have to check and clarify. 5. Lovenox 60 mg subcu b.i.d. 6. Fluoxetine 20 mg daily. 7. [place] 1 to 2 tablets q.6 hours p.r.n. pain. 8. p.o. daily as needed. 9. Metoprolol succinate (Toprol-XL) 100 mg daily. 10. Pantoprazole 40 mg daily. 11. MiraLAX 17 g in 8 ounces of water daily. 12. Senokot S 1 tablet b.i.d. 13. Warfarin 3 mg at bedtime. 14. Ambien 5 mg at bedtime. PHYSICAL EXAMINATION: GENERAL: This is a pleasant 84-year-old female, who is resting in bed and is not in any distress. She responds appropriately to questions. No family at bedside. VITAL SIGNS: She is afebrile. Heart rate is 93, respirations 22, oxygen saturation 94% on room air, blood pressure is 117/56. HEENT: Normocephalic, atraumatic. Pupils are equally reactive to light and accommodation. NECK: No JVD, thyromegaly, cervical adenopathy, or throat exudates. No carotid bruits. CARDIOVASCULAR SYSTEM: S1 and S2 plus, irregularly irregular. RESPIRATORY SYSTEM: Normal vesicular breath sounds heard in all lung oates. ABDOMEN: Soft and nontender. Bowel sounds heard in all quadrants. EXTREMITIES: Without cyanosis or clubbing. Right hip incision with dressing. Trace edema to right leg. CENTRAL NERVOUS SYSTEM: Awake and responsive, chronic dysphasia, otherwise grossly nonfocal. LABORATORY VALUES: Pending. IMPRESSION: 1. Right hip fracture, status post surgical fixation. 2. Atrial fibrillation. 3. Osteoarthritis. 4. Possible pneumonitis, but COVID negative. 5. Deconditioning. 6. History of cerebrovascular accident and transient ischemic attack. 7. Depression and anxiety. PLAN: 1. Continue current medications. 2. Heart healthy diet. 3. Monitor heart rate and rhythm. 4. Orthopedic precautions and incision care. 5. DVT prophylaxis - she is on full dose Lovenox and that will be discontinued once INR is greater than 2. 6. Warfarin, pharmacy to adjust dosing. 7. PT/OT eval and treat. 8. Clarify dosing of diltiazem. 9. Discussed with the patient in detail. All questions answered. 10. No family at bedside. Job ID: [id number]
[2020-02-18] MEDS: Calcium Carbonate 600 MG + Vit D TAB PO SCH (17:27)
[2020-02-18] MEDS: HYDROcodone/Acetaminophen 5/325 mg Tablet PO PRN (17:27)
[2020-02-18] MEDS: Warfarin Sodium 3 MG TAB PO SCH (17:27)
[2020-02-18] MEDS: Acetaminophen 325 MG TAB PO SCH ×2 (17:29→23:30)
[2020-02-18] MEDS: Senokot S 8.6-50 MG TAB PO SCH (20:18)
[2020-02-18] MEDS: Enoxaparin Sodium 60 MG/0.6 ML SYRINGE SC SCH (20:18)
[2020-02-19] MEDS: HYDROcodone/Acetaminophen 5/325 mg Tablet PO PRN (02:07)
[2020-02-19 05:08] LABS: Hemoglobin 8.7 g/dL (12.0-16.0); Mean Corpuscular HGB CONC 30.6 g/dL (32.0-36.0); Mean Corpuscular Hemoglobin 28.4 pg (27.0-31.0); Mean Corpuscular Volume 92.8 fL (78.0-98.0); RBC Distribution Width 21.1 % (11.5-14.5); Red Blood Cell (RBC) Count 3.04 mill/uL (4.20-5.40); White Blood Cell (WBC) Count 28.7 thou/uL (4.8-10.8)
[2020-02-19] MEDS: Acetaminophen 325 MG TAB PO SCH ×2 (05:08→12:45)
[2020-02-19 05:09] LABS: Manual Diff?? YES; Mean Platelet Volume 8.3 fL (7.4-10.4); Platelet Count 257 thou/uL (130-400)
[2020-02-19 05:17] LABS: INR-International Normal Ratio 1.1; Prothrombin Time 14.4 sec (12.0-14.7)
[2020-02-19 05:18] LABS: Carbon Dioxide 26 mmol/L (23-31); Chloride 99 mmol/L (98-107); Potassium 3.9 mmol/L (3.5-5.1); Sodium 136 mmol/L (136-145)
[2020-02-19 05:19] LABS: Anion Gap 12 mmol/L (10-20); BUN (Urea Nitrogen) 12 mg/dL (9.8-20.1); Calc. Creatinine Clearance 79 mL/min (70-130)
[2020-02-19 05:21] LABS: Estimated GFR-MDRD Greater than 90
[2020-02-19 05:22] LABS: Calcium 7.9 mg/dL (7.8-10.44); Glucose 128 mg/dL (83-110)
[2020-02-19 05:52] LABS: MDiff Complete? YES; Neutrophil 85 % (42-75)
[2020-02-19 05:53] LABS: Lymphocytes 4 % (21-51); Monocytes 7 % (0-10)
[2020-02-19 05:54] LABS: Metamyelocyte 4 % (0-0)
[2020-02-19] MEDS: Senokot S 8.6-50 MG TAB PO SCH ×2 (08:17→20:54)
[2020-02-19] MEDS: HYDROcodone/Acetaminophen 10/325 mg Tablet PO PRN ×2 (08:17→23:20)
[2020-02-19] MEDS: Calcium Carbonate 600 MG + Vit D TAB PO SCH ×2 (08:17→16:37)
[2020-02-19] MEDS: Enoxaparin Sodium 60 MG/0.6 ML SYRINGE SC SCH ×2 (08:18→20:53)
[2020-02-19] MEDS: FLUoxetine HCl 20 MG CAP PO SCH (08:18)
[2020-02-19] MEDS: Polyethylene Glycol 3350 17 GM Packet PO SCH (08:18)
--- NOTE | 2020-02-19 15:16 | PRG ---
DATE OF SERVICE: 02/19/2020 SUBJECTIVE: Ms. Brunner is sleeping, but arousable. She denies any questions or concerns. Discussed with nursing. She is apparently partially weightbearing to the right leg. OBJECTIVE: VITAL SIGNS: She is afebrile, heart rate 96, respirations 18, oxygen saturation 94% on 2 L, blood pressure 111/60. CARDIOVASCULAR SYSTEM: S1and S2 plus. RESPIRATORY SYSTEM: Normal vesicular breadth Sounds. ABDOMEN: Soft, nontender. Bowel sounds heard in all quadrants. EXTREMITIES: Without cyanosis or clubbing. Hip incision is healthy. CENTRAL NERVOUS SYSTEM: Grossly nonfocal. LABORATORY VALUES: White count is 28.7. She apparently has chronic leukocytosis, hemoglobin and hematocrit are 8.7 and 28.2. Sodium 136, potassium 3.9, BUN and creatinine are 12 and 0.54. INR is 1.1. IMPRESSION: 1. Atrial fibrillation. 2. Right hip fracture, status post surgical fixation. 3. History of CVA with chronic dysphagia. 4. Chronic leukocytosis. 5. Hypertension. 6. Dyslipidemia. 7. Anxiety and depression. PLAN: 1. Continue current medications. 2. Heart healthy diet. 3. Continue full-dose Lovenox until warfarin is therapeutic. 4. Physical therapy. 5. Orthopedic precautions and incision care. 6. Monitor heart rate and rhythm. 7. Decubitus precautions. 8. Stress ulcer prophylaxis. Job ID: [id number]
[2020-02-19] MEDS: Warfarin Sodium 3 MG TAB PO SCH (16:37)
[2020-02-20] MEDS: Senokot S 8.6-50 MG TAB PO SCH ×2 (09:54→20:04)
[2020-02-20] MEDS: FLUoxetine HCl 20 MG CAP PO SCH (09:54)
[2020-02-20] MEDS: Calcium Carbonate 600 MG + Vit D TAB PO SCH ×2 (09:55→17:08)
[2020-02-20] MEDS: Enoxaparin Sodium 60 MG/0.6 ML SYRINGE SC SCH ×2 (09:56→20:05)
[2020-02-20] MEDS: Polyethylene Glycol 3350 17 GM Packet PO SCH (09:57)
[2020-02-20] MEDS: HYDROcodone/Acetaminophen 5/325 mg Tablet PO PRN (10:18)
--- NOTE | 2020-02-20 13:33 | PRG ---
DATE OF SERVICE: 02/20/2020 SUBJECTIVE: Ms. Brunner apparently did not sleep well last night. She also was noticed to have hypoxemia when she is sleeping, mainly because she breathes through her mouth. When they put her on a face mask, her oxygen saturation is 98%. OBJECTIVE: VITAL SIGNS: She is afebrile. Heart rate is 104; respirations 18; oxygen saturation 93% currently has 2 L, but this morning it was apparently on room air; blood pressure 124/57. CARDIOVASCULAR: S1 and S2 plus. RESPIRATORY: Normal vesicular breath sounds. ABDOMEN: Soft, nontender. Bowel sounds heard in all quadrants. EXTREMITIES: Without cyanosis or clubbing. Holder catheter in place. CENTRAL NERVOUS SYSTEM: Chronic dysphagia, otherwise nonfocal. IMPRESSION: 1. Right hip fracture, status post fall and surgical fixation. 2. Ground-glass appearance on CT, but clinically no evidence for infection. 3. Atrial fibrillation. 4. History of CVA with chronic dysphagia. 5. Depression. 6. Insomnia. PLAN: 1. Change her Ambien to routine scheduled as she may not be asking for it. 2. Heart healthy diet. 3. Monitor respiratory status. 4. Encourage incentive spirometry. 5. Physical therapy. 6. Continue warfarin and monitor PT/INR. 7. Holder catheter care. 8. Discussed with nursing. Job ID: [id number]
[2020-02-20] MEDS: Warfarin Sodium 3 MG TAB PO SCH (17:08)
[2020-02-20] MEDS: Zolpidem Tartrate 5 MG TAB PO SCH (20:05)
[2020-02-21] MEDS: HYDROcodone/Acetaminophen 5/325 mg Tablet PO PRN ×2 (01:34→14:25)
[2020-02-21 06:37] LABS: INR-International Normal Ratio 1.2; Prothrombin Time 15.6 sec (12.0-14.7)
[2020-02-21] MEDS: Polyethylene Glycol 3350 17 GM Packet PO SCH (09:19)
[2020-02-21] MEDS: Enoxaparin Sodium 60 MG/0.6 ML SYRINGE SC SCH ×2 (09:19→21:10)
[2020-02-21] MEDS: Calcium Carbonate 600 MG + Vit D TAB PO SCH ×2 (09:20→17:31)
[2020-02-21] MEDS: Senokot S 8.6-50 MG TAB PO SCH ×2 (09:20→21:10)
[2020-02-21] MEDS: FLUoxetine HCl 20 MG CAP PO SCH (09:20)
[2020-02-21] MEDS: Acetaminophen 325 MG TAB PO PRN (12:43)
--- NOTE | 2020-02-21 14:26 | PRG ---
DATE OF SERVICE: 02/21/2020 SUBJECTIVE: Ms. Brunner is sleeping, but arousable. She apparently had episode of agitation yesterday and did not sleep well. She did get her Ambien and then this morning she was sleeping and she just ate breakfast at 11:00, was unable to do much with therapy. OBJECTIVE: VITAL SIGNS: She is afebrile. Heart rate is 92, respirations 18, blood pressure 133/74, oxygen saturation 93% on 3 L. CARDIOVASCULAR: S1 and S2 plus. RESPIRATORY: Normal vesicular breath sounds. ABDOMEN: Soft, nontender. Bowel sounds heard in all quadrants. EXTREMITIES: Without cyanosis or clubbing. CENTRAL NERVOUS SYSTEM: Generalized weakness with chronic dysphagia. Hip incision is healthy. 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 2. Right hip fracture, status post surgical fixation. 3. Atrial fibrillation. 4. History of CVA with chronic dysphagia. 5. Hypertension. 6. Dyslipidemia. 7. Anxiety and depression. PLAN: 1. Continue current medications. 2. Trial of Seroquel 25 mg at about 5 p.m. 3. Orthopedic precautions and incision care. 4. Monitor heart rate and rhythm. 5. Encourage p.o. intake. 6. DVT prophylaxis - the patient is on warfarin. Her INR is 1.2. We will give her an extra dose of warfarin. She continues on full dose Lovenox. 7. Continue therapy as tolerated. 8. Discussed with nursing. Job ID: [id number]
[2020-02-21] MEDS ORDERED: Warfarin Sodium 5 MG TAB PO SCH (14:30)
[2020-02-21] MEDS: Warfarin Sodium 3 MG TAB PO SCH (17:31)
[2020-02-21] MEDS: Zolpidem Tartrate 5 MG TAB PO SCH (21:11)
[2020-02-22 05:36] LABS: INR-International Normal Ratio 1.5; Prothrombin Time 17.6 sec (12.0-14.7)
[2020-02-22] MEDS: FLUoxetine HCl 20 MG CAP PO SCH (09:00)
[2020-02-22] MEDS: Enoxaparin Sodium 60 MG/0.6 ML SYRINGE SC SCH ×2 (09:00→20:34)
[2020-02-22] MEDS: Calcium Carbonate 600 MG + Vit D TAB PO SCH ×2 (09:01→17:19)
[2020-02-22] MEDS: Senokot S 8.6-50 MG TAB PO SCH ×2 (09:01→20:34)
[2020-02-22] MEDS: HYDROcodone/Acetaminophen 5/325 mg Tablet PO PRN ×2 (09:02→15:08)
[2020-02-22] MEDS: Polyethylene Glycol 3350 17 GM Packet PO SCH (09:02)
[2020-02-22] MEDS ORDERED: Warfarin Sodium 5 MG TAB PO SCH (11:45)
--- NOTE | 2020-02-22 11:56 | PRG ---
DATE OF SERVICE: 02/22/2020 SUBJECTIVE: Ms. Brunner is doing well. Denies any complaints. Up in the chair. She apparently ate much better last evening with the Seroquel. She apparently participated with therapy. Nursing states that she is constipated. I advised nursing that she has both milk of magnesia and Senokot as ordered. OBJECTIVE: VITAL SIGNS: She is afebrile. Heart rate 87, respirations 20, oxygen saturation 93% on 2 L, and blood pressure 116/58. CARDIOVASCULAR: S1-S2 plus. RESPIRATORY: Normal vesicular breath sounds. ABDOMEN: Soft, nontender. Bowel sounds heard in all quadrants. EXTREMITIES: Without cyanosis or clubbing. Right hip incision is healthy. IMPRESSION: 1. Right hip fracture, status post surgical fixation. 2. Atrial fibrillation. 3. History of cerebrovascular accident with chronic dysphagia. 4. Deconditioning. 5. Possible cognitive deficits/sundowning. PLAN: 1. Give her another 5 mg extra warfarin today. 2. Orthopedic precautions and incision care. 3. Continue full-dose Lovenox. 4. Bowel regimen. 5. Encourage p.o. intake. 6. Physical therapy. 7. Routine laboratory values. 8. Discussed with nursing. Job ID: [id number]
[2020-02-22] MEDS: Warfarin Sodium 3 MG TAB PO SCH (17:20)
[2020-02-22] MEDS: Zolpidem Tartrate 5 MG TAB PO SCH (20:34)
[2020-02-23] MEDS: HYDROcodone/Acetaminophen 5/325 mg Tablet PO PRN ×2 (02:33→10:20)
[2020-02-23 05:29] LABS: Prothrombin Time 22.3 sec (12.0-14.7)
[2020-02-23] MEDS: Calcium Carbonate 600 MG + Vit D TAB PO SCH ×2 (08:56→16:31)
[2020-02-23] MEDS: FLUoxetine HCl 20 MG CAP PO SCH (08:56)
[2020-02-23] MEDS: Senokot S 8.6-50 MG TAB PO SCH ×2 (08:56→20:46)
[2020-02-23] MEDS: Enoxaparin Sodium 60 MG/0.6 ML SYRINGE SC SCH (08:57)
[2020-02-23] MEDS: Polyethylene Glycol 3350 17 GM Packet PO SCH (08:59)
--- NOTE | 2020-02-23 13:51 | PRG ---
DATE OF SERVICE: 02/23/2020 SUBJECTIVE: Her bowel apparently had a huge bowel movement yesterday. She apparently has been eating and drinking well per nursing. I saw a note from therapy about dehydration, but nursing states that it was probably because her urine was a little dark and it is more a miscommunication. Nursing is very happy with her progress. No agitation. OBJECTIVE: VITAL SIGNS: She is afebrile, heart rate 80, respirations are 20, oxygen saturation 96% on 2 L, and blood pressure 155/70. CARDIOVASCULAR SYSTEM: S1 and S2 plus. RESPIRATORY SYSTEM: Normal vesicular breath sounds. ABDOMEN: Soft and nontender. Bowel sounds heard in all quadrants. EXTREMITIES: Without cyanosis or clubbing. IMPRESSION: 1. Right hip fracture, status post surgical fixation. 2. Atrial fibrillation. 3. History of cerebrovascular accident with persistent dysphagia. 4. Urinary retention requiring Holder catheter. 5. Possible early dementia. PLAN: 1. Continue current medications. 2. Heart healthy diet. 3. Monitor heart rate and rhythm. 4. Holder catheter care. 5. Orthopedic precautions and incision care. 6. Continue to monitor warfarin levels. She has required two doses of extra warfarin in the last couple of days. Her INR is now 2. We will discontinue her Lovenox. 7. Continue therapy. 8. Encourage p.o. intake. 9. Routine laboratory values. Job ID: [id number]
[2020-02-23] MEDS: Warfarin Sodium 3 MG TAB PO SCH (16:32)
[2020-02-23] MEDS: HYDROcodone/Acetaminophen 10/325 mg Tablet PO PRN (20:46)
[2020-02-23] MEDS: Zolpidem Tartrate 5 MG TAB PO SCH (20:48)
[2020-02-24] MEDS: HYDROcodone/Acetaminophen 10/325 mg Tablet PO PRN ×2 (01:57→10:13)
[2020-02-24 05:44] LABS: Prothrombin Time 22.2 sec (12.0-14.7)
[2020-02-24 05:51] LABS: Anion Gap 15 mmol/L (10-20); Anisocytosis MODERATE=16-30 cells (100X) (0-5/hpf); BUN (Urea Nitrogen) 10 mg/dL (9.8-20.1); Band 7 % (5-11); Calc. Creatinine Clearance 80 mL/min (70-130); Calcium 8.1 mg/dL (7.8-10.44); Carbon Dioxide 28 mmol/L (23-31); Chloride 99 mmol/L (98-107); Eosinophils 3 % (0-10); Estimated GFR-MDRD Greater than 90; Glucose 114 mg/dL (83-110); Hemoglobin 8.7 g/dL (12.0-16.0); Lymphocytes 20 % (21-51); MDiff Complete? YES; Mean Corpuscular HGB CONC 30.1 g/dL (32.0-36.0); Mean Corpuscular Hemoglobin 27.7 pg (27.0-31.0); Mean Platelet Volume 7.7 fL (7.4-10.4); Monocytes 2 % (0-10); Myelocyte 3 % (0-0); Neutrophil 63 % (42-75); Ovalocytes MODERATE= 6-15 cells (100X) (0-1/hpf); Platelet Count 299 thou/uL (130-400); Platelet Morphology Comment Appears Adequate; Poikilocytosis MODERATE=16-30 cells (100X) (0-5/hpf); Potassium 3.9 mmol/L (3.5-5.1); RBC Distribution Width 20.5 % (11.5-14.5); Red Blood Cell (RBC) Count 3.13 mill/uL (4.20-5.40); Sodium 138 mmol/L (136-145); Tear Drops SLIGHT = 2-5 cells (100X) (0-1/hpf)
[2020-02-24] MEDS: Calcium Carbonate 600 MG + Vit D TAB PO SCH ×2 (08:20→16:25)
[2020-02-24] MEDS: FLUoxetine HCl 20 MG CAP PO SCH (08:21)
[2020-02-24] MEDS: Senokot S 8.6-50 MG TAB PO SCH (08:21)
[2020-02-24] MEDS: Polyethylene Glycol 3350 17 GM Packet PO SCH (08:21)
[2020-02-24] MEDS ORDERED: Polyethylene Glycol 3350 17 GM Packet PO PRN (14:14)
--- NOTE | 2020-02-24 14:29 | PRG ---
DATE OF SERVICE: 02/24/2020 SUBJECTIVE: Ms. Brunner is sleeping, but arousable. She apparently is somnolent and the family wants the Ambien changed to p.r.n. The nursing also states that she is having uncontrollable bowel movements and they want to change the MiraLAX to p.r.n. I will also reduce the Senokot S to once daily. OBJECTIVE: VITAL SIGNS: The patient is afebrile; heart rate 88; respirations 20; oxygen saturation 97%, currently on room air; documented blood pressure 137/62. CARDIOVASCULAR SYSTEM: S1 and S2 plus. RESPIRATORY SYSTEM: Normal vesicular breath sounds. ABDOMEN: Soft and nontender. Bowel sounds heard in all quadrants. EXTREMITIES: Without cyanosis or clubbing. Right hip incision is healthy. CENTRAL NERVOUS SYSTEM: Generalized weakness. IMPRESSION: 1. Atrial fibrillation. 2. History of cerebrovascular accident with chronic dysphagia. 3. Status post fall and right hip fracture, requiring surgical fixation. 4. Acute hypoxemic respiratory failure, improving. 5. Constipation, resolved. 6. Possible mild cognitive deficits. 7. Chronic leukocytosis with no evidence for infection. PLAN: 1. Continue current medications. 2. Change MiraLAX to p.r.n. and Senokot-S to once daily. 3. Change Ambien to p.r.n. per family request. 4. Orthopedic precautions. 5. Monitor heart rate and rhythm. 6. Nutritional support. 7. Continue therapy. 8. Routine laboratory values. Her white count is 21,000. It is better than before. H and H are 8.7 and 28.8. Sodium 138, potassium 3.9, BUN and creatinine are 10 and 0.53. Her INR is 2.0. Job ID: [id number]
[2020-02-24] MEDS: HYDROcodone/Acetaminophen 5/325 mg Tablet PO PRN (16:25)
[2020-02-24] MEDS: Warfarin Sodium 3 MG TAB PO SCH (16:25)
[2020-02-25 05:54] LABS: INR-International Normal Ratio 1.6; Prothrombin Time 19.2 sec (12.0-14.7)
[2020-02-25] MEDS: Calcium Carbonate 600 MG + Vit D TAB PO SCH ×2 (08:00→16:14)
[2020-02-25] MEDS: FLUoxetine HCl 20 MG CAP PO SCH (08:00)
[2020-02-25] MEDS: HYDROcodone/Acetaminophen 10/325 mg Tablet PO PRN (08:01)
[2020-02-25] MEDS: Senokot S 8.6-50 MG TAB PO SCH (08:03)
[2020-02-25] MEDS ORDERED: Warfarin Sodium 2.5 MG TAB PO SCH (15:30)
--- NOTE | 2020-02-25 15:44 | PRG ---
DATE OF SERVICE: 02/24/2020 SUBJECTIVE: Ms. Brunner is up in her chair. She states that she wants to go home. I advised her that she needs to get stronger before she is safe enough to go home. Plan is for her daughter to take with her to [place]. She is also on diltiazem 300 mg in the morning and that she takes the Toprol-XL 100 mg at bedtime. I am going to change that to nighttime. OBJECTIVE: VITAL SIGNS: She is afebrile, heart rate 97, respirations are 18, oxygen saturation 98%, blood pressure 101/52. CARDIOVASCULAR SYSTEM: S1 and S2 plus. RESPIRATORY SYSTEM: Normal vesicular breath sounds. ABDOMEN: Soft and nontender. Bowel sounds heard in all quadrants. EXTREMITIES: Without cyanosis or clubbing. IMPRESSION: 1. Right hip fracture, status post surgical fixation. 2. Atrial fibrillation, rate controlled. 3. Cognitive deficits. 4. History of cerebrovascular accident with chronic dysphagia. 5. Fluctuating PT/INR. We will give her an extra dose of 5 mg and then increase her daily dose to 4 mg. PLAN: 1. Continue current medications. 2. Adjust warfarin. 3. Heart healthy diet. 4. Orthopedic precautions. 5. Holder catheter care. 6. DVT prophylaxis. 7. Decubitus precautions. 8. Stress ulcer prophylaxis. 9. Discharge planning. Job ID: [id number]
[2020-02-25] MEDS: Warfarin Sodium 5 MG TAB PO SCH (16:14)
[2020-02-26] MEDS: Zolpidem Tartrate 5 MG TAB PO PRN (01:15)
[2020-02-26] MEDS: HYDROcodone/Acetaminophen 5/325 mg Tablet PO PRN ×2 (01:15→08:28)
[2020-02-26 05:26] LABS: INR-International Normal Ratio 2.3; Prothrombin Time 25.2 sec (12.0-14.7)
[2020-02-26] MEDS: FLUoxetine HCl 20 MG CAP PO SCH (08:22)
[2020-02-26] MEDS: Calcium Carbonate 600 MG + Vit D TAB PO SCH ×2 (08:22→16:16)
[2020-02-26] MEDS: Senokot S 8.6-50 MG TAB PO SCH (08:23)
[2020-02-26] MEDS: HYDROcodone/Acetaminophen 10/325 mg Tablet PO PRN ×2 (12:54→20:28)
--- NOTE | 2020-02-26 14:54 | PRG ---
DATE OF SERVICE: 02/26/2020 SUBJECTIVE: Ms. Brunner has been moved up closer to the nurse's station. She is doing well. She denies any questions or concerns. She is much more pleasant today. Plan is to try to remove her Holder catheter and monitor her urine output. OBJECTIVE: VITAL SIGNS: She is afebrile. Heart rate is 90, respirations 20, oxygen saturation 98% on nasal cannula 2 L, and blood pressure 128/68. CARDIOVASCULAR SYSTEM: S1 and S2 plus. RESPIRATORY SYSTEM: Normal vesicular breath sounds. ABDOMEN: Soft and nontender. Bowel sounds heard in all quadrants. EXTREMITIES: Without cyanosis or clubbing. IMPRESSION: 1. Atrial fibrillation. 2. Old cerebrovascular accident with persistent dysphagia. 3. Fall resulting in right femur fracture, requiring open reduction and internal fixation. 4. Deconditioning. 5. Possible urinary retention. 6. Cognitive deficits. PLAN: 1. Continue current medications. 2. Heart healthy diet. 3. Trial of removing Holder catheter and monitoring postvoid residuals in and out catheterization if PVR greater than 400 mL every 6 hours. 4. Continue therapy. 5. Orthopedic precautions. 6. Nutritional support. 7. Routine laboratory values. 8. Discussed with the patient and nursing in detail. All questions answered. Job ID: [id number]
[2020-02-26] MEDS: Warfarin Sodium 5 MG TAB PO SCH (16:16)
[2020-02-27 05:25] LABS: INR-International Normal Ratio 2.4; Prothrombin Time 26.3 sec (12.0-14.7)
[2020-02-27] MEDS: Senokot S 8.6-50 MG TAB PO SCH (08:13)
[2020-02-27] MEDS: Calcium Carbonate 600 MG + Vit D TAB PO SCH ×2 (08:14→16:27)
[2020-02-27] MEDS: FLUoxetine HCl 20 MG CAP PO SCH (08:16)
--- NOTE | 2020-02-27 13:36 | PRG ---
DATE OF SERVICE: 02/27/2020 SUBJECTIVE: Ms. Brunner is up in her chair. She is actually voiding spontaneously since removal of the Holder catheter. No concerns or questions. OBJECTIVE: VITAL SIGNS: She is afebrile. Heart rate is 78, respirations are 20, oxygen saturation 96%. She is down to 1 L of oxygen via nasal cannula. Blood pressure 121/63. CARDIOVASCULAR: S1 and S2 plus. RESPIRATORY: Normal vesicular breath sounds. ABDOMEN: Soft, nontender. Bowel sounds heard in all quadrants. EXTREMITIES: Without cyanosis or clubbing. Hip incision is healthy. IMPRESSION: 1. Right hip fracture, status post surgical fixation. 2. Atrial fibrillation. 3. Acute hypoxemic respiratory failure. 4. Resolving urinary retention. 5. Possible cognitive deficits. 6. History of CVA with persistent dysphagia. PLAN: 1. Continue current medications. 2. Heart healthy diet. 3. Orthopedic precautions. 4. Incision care. 5. DVT prophylaxis - she is on warfarin. 6. Decubitus precaution. 7. Stress ulcer prophylaxis. 8. Monitor urine output. 9. Continue therapy. Job ID: [id number]
[2020-02-27] MEDS: HYDROcodone/Acetaminophen 5/325 mg Tablet PO PRN (15:08)
[2020-02-27] MEDS: Acetaminophen 325 MG TAB PO PRN (16:27)
[2020-02-27] MEDS: Warfarin Sodium 5 MG TAB PO SCH (16:28)
[2020-02-27] MEDS ORDERED: Mag-Al Plus 1200 MG/1200 MG/120 MG/30 ML UDCUP PO SCH (19:15)
[2020-02-27] MEDS: Zolpidem Tartrate 5 MG TAB PO PRN (20:50)
[2020-02-27] MEDS: HYDROcodone/Acetaminophen 10/325 mg Tablet PO PRN (20:52)
[2020-02-28] MEDS: Calcium Carbonate 600 MG + Vit D TAB PO SCH ×2 (08:24→17:11)
[2020-02-28] MEDS: Senokot S 8.6-50 MG TAB PO SCH (08:25)
[2020-02-28] MEDS: HYDROcodone/Acetaminophen 10/325 mg Tablet PO PRN (08:25)
[2020-02-28] MEDS: FLUoxetine HCl 20 MG CAP PO SCH (08:26)
--- NOTE | 2020-02-28 12:39 | PRG ---
DATE OF SERVICE: 02/28/2020 SUBJECTIVE: Ms. Brunner had an episode of chest pain yesterday. EKG was done, which was unremarkable. The pain resolved with Maalox. She is on pantoprazole daily. She is in good mood today. No concerns or questions. Plan is to titrate oxygen. She is voiding. OBJECTIVE: VITAL SIGNS: She is afebrile, heart rate 80, respirations 20, oxygen saturation 98% on 1 L, blood pressure 148/72. CARDIOVASCULAR SYSTEM: S1 and S2 plus. Rate and rhythm are irregularly irregular, but rate controlled RESPIRATORY SYSTEM: Normal vesicular breath sounds. ABDOMEN: Soft, nontender. Bowel sounds heard in all quadrants. EXTREMITIES: Without cyanosis or clubbing. Right hip incision with dressing. IMPRESSION: 1. Right hip fracture, status post surgical fixation. 2. Atrial fibrillation. 3. History of cerebrovascular accident with residual dysphagia. 4. Improving deconditioning. 5. Acute hypoxemic respiratory failure. PLAN: 1. Continue current medications. 2. Heart healthy diet. 3. Monitor heart rate and rhythm. 4. Monitor respiratory status and titrate oxygen as tolerated. 5. Monitor urine output. 6. Physical therapy. 7. Orthopedic precautions and incision care. 8. DVT prophylaxis-she is on warfarin and it is therapeutic. Her INR is 2.4. Job ID: [id number]
[2020-02-28] MEDS: HYDROcodone/Acetaminophen 5/325 mg Tablet PO PRN (14:44)
[2020-02-28] MEDS: Warfarin Sodium 5 MG TAB PO SCH (17:11)
[2020-02-28] MEDS: Zolpidem Tartrate 5 MG TAB PO PRN (20:38)
[2020-02-28] MEDS: Acetaminophen 325 MG TAB PO PRN (20:38)
[2020-02-29] MEDS: HYDROcodone/Acetaminophen 5/325 mg Tablet PO PRN (03:40)
[2020-02-29 05:38] LABS: INR-International Normal Ratio 2.6
[2020-02-29] MEDS: Calcium Carbonate 600 MG + Vit D TAB PO SCH ×3 (08:20→16:07)
[2020-02-29] MEDS: FLUoxetine HCl 20 MG CAP PO SCH (08:21)
[2020-02-29] MEDS: HYDROcodone/Acetaminophen 10/325 mg Tablet PO PRN ×3 (08:21→20:19)
[2020-02-29] MEDS: Senokot S 8.6-50 MG TAB PO SCH (08:21)
--- NOTE | 2020-02-29 12:38 | PRG ---
DATE OF SERVICE: 02/29/2020 SUBJECTIVE: Ms. Brunner is up in her chair. She just finished her lunch. She has her oxygen up on her forehead. Denies any concerns or questions. I advised nursing to wean her off the oxygen as tolerated. Reviewed weekly case conference notes from yesterday. The patient is progressing but slow. Plan is for her to go to her daughter's house in [place] on discharge. No anticipated discharge date yet. OBJECTIVE: VITAL SIGNS: She is afebrile, heart rate 87, respirations 18, oxygen saturation 94% on room air, blood pressure 136/72. CARDIOVASCULAR: S1 and S2 plus. RESPIRATORY: Normal vesicular breath sounds. ABDOMEN: Soft, nontender. Bowel sounds heard in all quadrants. EXTREMITIES: Without cyanosis or clubbing. IMPRESSION: 1. Right hip fracture, status post surgical fixation. 2. Atrial fibrillation, rate controlled. 3. Acute hypoxemic respiratory failure. 4. Urinary retention, resolved. 5. Improving deconditioning. 6. Possible cognitive deficits and history of cerebrovascular accident with residual dysphagia. PLAN: 1. Continue current medications. 2. Heart healthy diet. 3. Monitor heart rate and rhythm. 4. Physical therapy. 5. Titrate oxygen. 6. Monitor respiratory status. 7. Routine laboratory values. 8. Therapeutic INR of 2.6. Job ID: [id number]
[2020-02-29] MEDS: Warfarin Sodium 5 MG TAB PO SCH ×2 (16:00→16:09)
[2020-02-29] MEDS ORDERED: Haloperidol Lactate 5 MG/ML VIAL IM SCH (18:15)
[2020-03-01] MEDS: Acetaminophen 325 MG TAB PO PRN (04:15)
[2020-03-01] MEDS: HYDROcodone/Acetaminophen 5/325 mg Tablet PO PRN (04:15)
[2020-03-01 05:33] LABS: INR-International Normal Ratio 2.4; Prothrombin Time 26.3 sec (12.0-14.7)
[2020-03-01] MEDS: FLUoxetine HCl 20 MG CAP PO SCH (08:15)
[2020-03-01] MEDS: Calcium Carbonate 600 MG + Vit D TAB PO SCH ×2 (08:15→15:43)
[2020-03-01] MEDS: Senokot S 8.6-50 MG TAB PO SCH (08:16)
--- NOTE | 2020-03-01 13:37 | PRG ---
DATE OF SERVICE: 03/01/2020 SUBJECTIVE: Ms. Brunner is working with occupational therapy. She is standing . She apparently is doing pretty well. Family apparently is concerned about her episode of agitation and not sure if they can handle her at home . OBJECTIVE: VITAL SIGNS: The patient is afebrile, heart rate is 87, oxygen saturation is 93%, respiratory rate is 18, and blood pressure is 126/60. CARDIOVASCULAR SYSTEM: S1 and S2 plus. RESPIRATORY SYSTEM: Normal vesicular breath sounds. ABDOMEN: Soft, nontender. Bowel sounds heard in all quadrants. EXTREMITIES: Without cyanosis or clubbing. Peripheral pulses are palpable. NEUROLOGIC: Central nervous system grossly nonfocal. IMPRESSION: 1. Healing right hip fracture, status post surgical fixation. 2. History of atrial fibrillation. 3. Mild cognitive deficits. 4. Improving deconditioning. 5. History of cerebrovascular accident with chronic dysphagia. PLAN: 1. Continue current medications. 2. Heart healthy diet. 3. Aspiration precautions. 4. Titrate oxygen. 5. Physical therapy. 6. Routine laboratory values. 7. Discharge planning. 8. Continue to monitor warfarin dose. Job ID: [id number]
[2020-03-01] MEDS: HYDROcodone/Acetaminophen 10/325 mg Tablet PO PRN ×2 (15:43→22:58)
[2020-03-01] MEDS: Warfarin Sodium 5 MG TAB PO SCH (15:43)
[2020-03-02 05:26] LABS: INR-International Normal Ratio 2.3; Prothrombin Time 25.4 sec (12.0-14.7)
[2020-03-02] MEDS: Calcium Carbonate 600 MG + Vit D TAB PO SCH ×2 (08:24→17:13)
[2020-03-02] MEDS: Senokot S 8.6-50 MG TAB PO SCH (08:25)
[2020-03-02] MEDS: Acetaminophen 325 MG TAB PO PRN (08:25)
[2020-03-02] MEDS: FLUoxetine HCl 20 MG CAP PO SCH (08:26)
--- NOTE | 2020-03-02 09:41 | PRG ---
DATE OF SERVICE: 03/02/2020 SUBJECTIVE: Ms. Brunner is up and walking with therapy in the hallways. They state that she is improving well and hopefully should be ready for discharge next week. I had a long discussion with one of her daughters, Candelaria yesterday. She is concerned a bit mom's behavioral episodes and this apparently was happening even before this admission. She was living with her before, but now that he has . Daughters are planning on taking her to [place] with them, but they cannot provide 24/7 care at this point. They feel like they may have to sell her assets to pay for medical care. When I asked daughter about her insurance coverage, she states that she has Medicare with a supplement and I advised daughter that in that case, then she has at least 100 days of senior care days covered if the patient qualifies and gives her some time to figure it out. Case Management has also been talking to the daughter and advised them that we are trying to wean her off oxygen, but she may need oxygen and obviously she will need to find a PCP in [place]. OBJECTIVE: VITAL SIGNS: The patient is afebrile, heart rate 87, respirations 20, oxygen saturation 95% on 1 L, blood pressure 160/76. CARDIOVASCULAR SYSTEM: S1, S2 plus. RESPIRATORY SYSTEM: Normal vesicular breath sounds. ABDOMEN: Soft, nontender. Bowel sounds heard in all quadrants. EXTREMITIES: Without cyanosis or clubbing. Right hip incision is healthy. I advised Nursing to start removing sutures, alternate sutures today and then on Thursday, remove the rest. IMPRESSION: 1. Right hip fracture, status post fall, requiring surgical fixation. 2. Atrial fibrillation with controlled ventricular response. 3. History of cerebrovascular accident with chronic dysphagia. 4. Resolved urinary retention. 5. Mild cognitive deficits. PLAN: 1. Continue current medications. 2. Heart healthy diet. 3. Fall precautions. 4. Orthopedic precautions. 5. Remove sutures, alternate sutures. 6. Incision care. 7. Continue physical therapy. 8. Discharge planning. Job ID: [id number]
[2020-03-02] MEDS: HYDROcodone/Acetaminophen 5/325 mg Tablet PO PRN ×2 (14:24→20:36)
[2020-03-02] MEDS: Warfarin Sodium 5 MG TAB PO SCH (17:15)
[2020-03-03 05:32] LABS: INR-International Normal Ratio 2.3; Prothrombin Time 25.3 sec (12.0-14.7)
[2020-03-03] MEDS: HYDROcodone/Acetaminophen 10/325 mg Tablet PO PRN ×2 (07:20→18:20)
[2020-03-03] MEDS: Calcium Carbonate 600 MG + Vit D TAB PO SCH ×2 (07:52→16:26)
[2020-03-03] MEDS: Senokot S 8.6-50 MG TAB PO SCH (07:52)
[2020-03-03] MEDS: FLUoxetine HCl 20 MG CAP PO SCH (07:53)
[2020-03-03] MEDS: Warfarin Sodium 5 MG TAB PO SCH (16:26)
[2020-03-04 05:26] LABS: INR-International Normal Ratio 2.7; Prothrombin Time 28.4 sec (12.0-14.7)
--- NOTE | 2020-03-04 08:07 | PRG ---
DATE OF SERVICE: 03/03/[address] Ishmael Garrison. HISTORY OF PRESENT ILLNESS: The patient is alert and cheerful, no distress, pleasantly confused. She denies any complaints. OBJECTIVE: VITAL SIGNS: Showed her to have a temperature of 96, pulse 79, respirations 18, O2 sats 93% on 1 L. Blood pressure is 114/56. LUNGS: Clear. CARDIAC: Shows regular rhythm. ABDOMEN: Soft and nontender. LABORATORY DATA: PT and INR are 28 and 2.7. Most recent white count still elevated at 21,000. No evidence of infection. ASSESSMENT: 1. Resolving right hip fracture. 2. Stable atrial fibrillation with rate control and anticoagulation. 3. Stable cerebrovascular accident, chronic dysphagia. 4. Persistent cognitive deficits. PLAN: 1. Jane have been removed. 2. Repeat CBC in the a.m. 3. Continue PT/OT. 4. Continue to monitor for aspiration. 5. Continue rate control and anticoagulation of atrial fibrillation. Job ID: [id number]
[2020-03-04 08:17] LABS: Anisocytosis SLIGHT = 6-15 cells (100X) (0-5/hpf); Band 9 % (5-11); Eosinophils 3 % (0-10); Hemoglobin 9.9 g/dL (12.0-16.0); Hypochromia SLIGHT = 6-15 cells (100X) (0-5/hpf); Lymphocytes 11 % (21-51); MDiff Complete? YES; Mean Corpuscular HGB CONC 30.4 g/dL (32.0-36.0); Mean Corpuscular Hemoglobin 29.3 pg (27.0-31.0); Mean Corpuscular Volume 96.1 fL (78.0-98.0); Mean Platelet Volume 7.8 fL (7.4-10.4); Metamyelocyte 2 % (0-0); Monocytes 4 % (0-10); Neutrophil 71 % (42-75); Ovalocytes SLIGHT = 2-5 cells (100X) (0-1/hpf); Platelet Count 283 thou/uL (130-400); Platelet Morphology Comment Appears Adequate; RBC Distribution Width 25.1 % (11.5-14.5); Red Blood Cell (RBC) Count 3.39 mill/uL (4.20-5.40); White Blood Cell (WBC) Count 13.6 thou/uL (4.8-10.8)
[2020-03-04] MEDS: Senokot S 8.6-50 MG TAB PO SCH (08:18)
[2020-03-04] MEDS: Calcium Carbonate 600 MG + Vit D TAB PO SCH ×2 (08:18→16:14)
[2020-03-04] MEDS: FLUoxetine HCl 20 MG CAP PO SCH (08:18)
[2020-03-04 08:20] LABS: ALT (SGPT) 11 U/L (8-55); AST (SGOT) 19 U/L (5-34); Albumin 3.3 g/dL (3.4-4.8); Alkaline Phosphatase 222 U/L (40-110); Anion Gap 15 mmol/L (10-20); BUN (Urea Nitrogen) 11 mg/dL (9.8-20.1); Bilirubin, Total 0.8 mg/dL (0.2-1.2); Calc. Creatinine Clearance 67 mL/min (70-130); Calcium 8.4 mg/dL (7.8-10.44); Carbon Dioxide 27 mmol/L (23-31); Chloride 99 mmol/L (98-107); Estimated GFR-MDRD 89; Glucose 102 mg/dL (83-110); Protein, Total 6.3 g/dL (6.0-8.3); Sodium 137 mmol/L (136-145)
[2020-03-04 10:41] LABS: Bilirubin Negative (Negative); Blood, Urine Trace (Negative); Clarity Slightly Cloudy (Clear); Glucose, Urine (Dipstick) Negative (Negative); Ketone, Urine Negative (Negative); Leukocyte Large (Negative); Nitrite Negative (Negative); Protein, Urine (Dipstick) Negative (Neg-Trace); Specific Gravity, Urine 1.015 (1.005-1.030); pH, Urine 8.5 (5.0-9.0)
[2020-03-04 10:46] LABS: RBC/HPF 0-3 HPF (0-3); Squamous Epithelial 0-3 HPF (0-3); Transitional Epithelial 0-3 HPF (None Seen); WBC/HPF Greater Than 50 HPF (0-3)
[2020-03-04 10:47] LABS: Bacteria/HPF Rare-Few HPF (None Seen)
[2020-03-04] MEDS: HYDROcodone/Acetaminophen 10/325 mg Tablet PO PRN (16:14)
[2020-03-04] MEDS: Warfarin Sodium 5 MG TAB PO SCH (16:14)
--- NOTE | 2020-03-04 18:23 | PRG ---
DATE OF SERVICE: SUBJECTIVE: The patient feels well, sitting up in bed, eating supper, pleasantly confused with no complaints. OBJECTIVE: VITAL SIGNS: Shows temperature is 97.8, pulse 93, respirations 20, O2 sats 93% on room air, blood pressure 161/82. LABORATORY DATA: White count is down to 13,600, hematocrit 32, hemoglobin 9.9. PT 28, INR 2.7. Sodium 137, potassium 4.0, chloride 99, bicarb 27, BUN 11, creatinine 0.64, alkaline phosphatase 222, albumin 3.3. Urinalysis does show greater than 50 white cells, 0 to 3 epithelial cells. ASSESSMENT: 1. Persistent pyuria and bacteriuria. 2. Improved leukocytosis. 3. Stable atrial fibrillation with rate control and anticoagulation. 4. Stable cognitive deficits. 5. Resolved hip fracture. PLAN: 1. Urine culture still has pyuria and bacteriuria, although decreasing serum leukocytosis. 2. Continue rate control and anticoagulation of atrial fibrillation. 3. Continue PT, OT. Job ID: [id number]
[2020-03-04] MEDS: Acetaminophen 325 MG TAB PO PRN (20:48)
[2020-03-05 05:32] LABS: INR-International Normal Ratio 2.7; Prothrombin Time 28.5 sec (12.0-14.7)
[2020-03-05] MEDS: FLUoxetine HCl 20 MG CAP PO SCH (08:05)
[2020-03-05] MEDS: Senokot S 8.6-50 MG TAB PO SCH (08:05)
[2020-03-05] MEDS: HYDROcodone/Acetaminophen 5/325 mg Tablet PO PRN (08:05)
[2020-03-05] MEDS: Calcium Carbonate 600 MG + Vit D TAB PO SCH ×2 (08:07→16:44)
--- NOTE | 2020-03-05 15:49 | PRG ---
DATE OF SERVICE: 03/05/2020 SUBJECTIVE: Ms. Brunner is up in her chair. She is off her oxygen. She is doing well with therapy. No concerns or questions. OBJECTIVE: VITAL SIGNS: She is afebrile. Heart rate 80, respirations 20, oxygen saturation 96% on room air, and blood pressure 144/67. CARDIOVASCULAR SYSTEM: S1 and S2 plus. RESPIRATORY SYSTEM: Normal vesicular breath sounds. ABDOMEN: Soft and nontender. Bowel sounds heard in all quadrants. EXTREMITIES: Without cyanosis or clubbing. Right hip incision is healthy. CENTRAL NERVOUS SYSTEM: Improving deconditioning. IMPRESSION: 1. Right hip fracture, status post surgical fixation. 2. Paroxysmal atrial fibrillation, rate controlled. 3. History of cerebrovascular accident with chronic dysphagia. 4. Resolved urinary retention. 5. Mild cognitive deficits. 6. Improving deconditioning. PLAN: 1. Continue current medications. 2. Monitor blood pressure. 3. Monitor heart rate and rhythm. 4. Orthopedic precautions. 5. Continue therapy. 6. Routine laboratory values. 7. Monitor respiratory status. 8. Discharge planning. Job ID: [id number]
[2020-03-05] MEDS: Warfarin Sodium 5 MG TAB PO SCH (16:45)
[2020-03-05] MEDS: HYDROcodone/Acetaminophen 10/325 mg Tablet PO PRN (20:07)
[2020-03-06 05:37] LABS: INR-International Normal Ratio 2.6; Prothrombin Time 27.7 sec (12.0-14.7)
[2020-03-06] MEDS: Senokot S 8.6-50 MG TAB PO SCH (08:06)
[2020-03-06] MEDS: Calcium Carbonate 600 MG + Vit D TAB PO SCH ×2 (08:06→16:30)
[2020-03-06] MEDS: HYDROcodone/Acetaminophen 5/325 mg Tablet PO PRN (08:07)
[2020-03-06] MEDS: FLUoxetine HCl 20 MG CAP PO SCH (08:07)
--- NOTE | 2020-03-06 13:19 | PRG ---
DATE OF SERVICE: 03/06/2020 SUBJECTIVE: Ms. Brunner is doing well. She remains off her oxygen. Awaiting therapy decision as to when she is stable to go home. Family apparently has already made arrangements for 16/03 care. OBJECTIVE: VITAL SIGNS: She is afebrile, heart rate 78, respirations 18, oxygen saturation 92% on room air, and blood pressure 128/76. CARDIOVASCULAR SYSTEM: S1 and S2 plus. RESPIRATORY SYSTEM: Normal vesicular breath sounds. ABDOMEN: Soft and nontender. Bowel sounds heard in all quadrants. EXTREMITIES: Without cyanosis or clubbing. CENTRAL NERVOUS SYSTEM: Improving deconditioning. IMPRESSION: 1. Right leg fracture, status post surgical fixation. 2. Atrial fibrillation. 3. History of cerebrovascular accident with chronic . 4. Resolved acute hypoxemic respiratory failure. 5. Improving deconditioning. PLAN: 1. Continue current medications. 2. Heart healthy diet. 3. Monitor heart rate and rhythm. 4. Orthopedic precautions. 5. Physical therapy. 6. Routine laboratory values. 7. Discharge planning. Job ID: [id number]
[2020-03-06] MEDS: Warfarin Sodium 5 MG TAB PO SCH (16:30)
[2020-03-06] MEDS: HYDROcodone/Acetaminophen 10/325 mg Tablet PO PRN ×2 (16:30→20:33)
[2020-03-07] MEDS: Calcium Carbonate 600 MG + Vit D TAB PO SCH ×2 (08:58→17:56)
[2020-03-07] MEDS: FLUoxetine HCl 20 MG CAP PO SCH (08:58)
[2020-03-07] MEDS: Senokot S 8.6-50 MG TAB PO SCH (08:59)
[2020-03-07] MEDS: HYDROcodone/Acetaminophen 10/325 mg Tablet PO PRN (09:03)
--- NOTE | 2020-03-07 13:20 | PRG ---
DATE OF SERVICE: 03/07/2020 SUBJECTIVE: Ms. Brunner is doing well. Denies any complaints. Plan is for her to be discharged on the 18 to family. She is happy with her progress. OBJECTIVE: VITAL SIGNS: She is afebrile. Heart rate 79, respirations 18, oxygen saturation 95% on room air, blood pressure 105/53. CARDIOVASCULAR: S1 and S2 plus. RESPIRATORY: Normal vesicular breath sounds. ABDOMEN: Soft, nontender. Bowel sounds heard in all quadrants. EXTREMITIES: Without cyanosis or clubbing. Right hip incision is well healed. CENTRAL NERVOUS SYSTEM: Improving deconditioning. IMPRESSION: 1. Right hip fracture, status post surgical fixation. 2. Atrial fibrillation, rate controlled. 3. History of CVA with chronic dysphagia. 4. Improving deconditioning. 5. Mild cognitive deficits. PLAN: 1. Continue current medications. 2. Physical therapy. 3. Nutritional support. 4. Discharge planning. 5. Routine laboratory values. 6. DVT prophylaxis - she is on warfarin. INR is 2.6. Job ID: [id number]
[2020-03-07] MEDS: Warfarin Sodium 5 MG TAB PO SCH (17:56)
[2020-03-07] MEDS: HYDROcodone/Acetaminophen 5/325 mg Tablet PO PRN (20:28)
[2020-03-08 05:37] LABS: INR-International Normal Ratio 2.7; Prothrombin Time 28.6 sec (12.0-14.7)
[2020-03-08] MEDS: Calcium Carbonate 600 MG + Vit D TAB PO SCH ×2 (08:52→17:05)
[2020-03-08] MEDS: FLUoxetine HCl 20 MG CAP PO SCH (08:53)
[2020-03-08] MEDS: Senokot S 8.6-50 MG TAB PO SCH (08:53)
--- NOTE | 2020-03-08 13:24 | PRG ---
DATE OF SERVICE: 03/08/2020 SUBJECTIVE: Ms. Brunner is doing well. She just finished her lunch. No concerns or questions. I have asked nursing to check with family to see where they want me to send the prescriptions as they are planning on moving her to [place] with them. OBJECTIVE: VITAL SIGNS: The patient is afebrile. Heart rate 69, respirations 18, oxygen saturation 95% on room air, blood pressure 156/70. CARDIOVASCULAR: S1 and S2 plus. RESPIRATORY: Normal vesicular breath sounds. ABDOMEN: Soft, nontender. Bowel sounds heard in all quadrants. EXTREMITIES: Without cyanosis or clubbing. CENTRAL NERVOUS SYSTEM: Improving deconditioning. IMPRESSION: 1. Right hip fracture, status post fall, now with surgical fixation. 2. Atrial fibrillation, rate controlled. 3. History of CVA with chronic dysphagia. 4. Improving deconditioning. 5. Mild cognitive deficits. PLAN: 1. Continue current medications. 2. Heart healthy diet. 3. Monitor heart rate and rhythm. 4. Continue therapy. 5. Discharge planning. 6. DVT prophylaxis - the patient is on Eliquis. 7. Decubitus precautions. 8. Stress ulcer prophylaxis. Job ID: [id number]
[2020-03-08] MEDS ORDERED: Pancrelipase DR 12,000 1 CAP FS PRN (13:44)
[2020-03-08] MEDS ORDERED: Sodium Bicarbonate Tab 325 MG TAB PER TUBE PRN (13:44)
[2020-03-08] MEDS: Warfarin Sodium 5 MG TAB PO SCH (17:04)
[2020-03-08] MEDS: HYDROcodone/Acetaminophen 5/325 mg Tablet PO PRN (21:02)
[2020-03-09 05:33] LABS: INR-International Normal Ratio 2.7; Prothrombin Time 28.3 sec (12.0-14.7)
[2020-03-09] MEDS: FLUoxetine HCl 20 MG CAP PO SCH (08:42)
[2020-03-09] MEDS: Calcium Carbonate 600 MG + Vit D TAB PO SCH ×2 (08:42→17:33)
[2020-03-09] MEDS: Senokot S 8.6-50 MG TAB PO SCH (08:42)
--- NOTE | 2020-03-09 08:50 | PRG ---
DATE OF SERVICE: 03/09/2020 SUBJECTIVE: Ms. Brunner is doing well. Denies any complaints. Apparently, plan is for her to go home here locally with caregivers. Case Management is arranging home health. Apparently, her local pharmacy is [facility] and I am going to send 5-month supply on all her medications. She has not been taking the pain medications and I will not send the Ambien, as I cannot do it from the hospital system. OBJECTIVE: VITAL SIGNS: She is afebrile. VITAL SIGNS: Heart rate 82, respirations 18, oxygen saturation 93% on room air, blood pressure 123/58. CARDIOVASCULAR SYSTEM: S1 and S2 plus. RESPIRATORY SYSTEM: Normal vesicular breath sounds. ABDOMEN: Soft and nontender. Bowel sounds heard in all quadrants. EXTREMITIES: Without cyanosis or clubbing. CENTRAL NERVOUS SYSTEM: Improving deconditioning. IMPRESSION: 1. Right hip fracture, status post surgical fixation. 2. Atrial fibrillation. 3. History of cerebrovascular accident with chronic dysphagia. 4. Mild cognitive deficits. PLAN: 1. Continue current medications. 2. Discharge planning. 3. Send prescriptions to [facility]. 4. Arrange home health. 5. Nutritional support. 6. Monitor incision site, it has well healed so far and monitor behaviors. Job ID: [id number]
[2020-03-09] MEDS: Warfarin Sodium 5 MG TAB PO SCH (17:34)
[2020-03-09] MEDS: Acetaminophen 325 MG TAB PO PRN (21:14)
[2020-03-10 05:29] LABS: INR-International Normal Ratio 2.9; Prothrombin Time 30.1 sec (12.0-14.7)
[2020-03-10 07:22] VITALS: BP 148/66; TEMP 96.7
[2020-03-10] MEDS: FLUoxetine HCl 20 MG CAP PO SCH (08:35)
[2020-03-10] MEDS: Senokot S 8.6-50 MG TAB PO SCH (08:35)
[2020-03-10] MEDS: Calcium Carbonate 600 MG + Vit D TAB PO SCH (08:35)
--- NOTE | 2020-03-11 05:58 | DIS ---
DATE OF ADMISSION: 02/18/2020 DATE OF DISCHARGE: 03/10/2020 PRINCIPAL DIAGNOSIS: Right hip fracture, status post surgical fixation. SECONDARY DIAGNOSES: 1. Atrial fibrillation. 2. History of cerebrovascular accident with chronic dysphagia. 3. Hypertension. 4. Dyslipidemia. 5. Anxiety and depression. 6. Osteoarthritis. 7. Mild cognitive deficits and history of breast cancer. COMPLICATIONS: None. ADVERSE REACTIONS: None. PROCEDURES: None. CONSULTATIONS: Physical Therapy and Occupational Therapy. HOSPITAL COURSE: The patient was admitted after suffering a fall at home resulting in a right hip fracture. She underwent surgical fixation and was transferred here for therapy. She did have couple episodes of agitation, for which she was started on Seroquel and that really helped. She slowly improved with therapy. She also was noted to have acute hypoxemic respiratory failure and she was slowly titrated off her oxygen and has been on room air for about 3 days prior to discharge. She has improved well. Therapy deemed her to be safe to be discharged home, but she does need 24/7 care. Discussed with her daughter, Milly and they have made arrangements for 24/7 care. Home health has been arranged. Her sutures have been removed. Incision is healthy. She is to follow up with her PCP in 7 to 14 days. PHYSICAL EXAMINATION: VITAL SIGNS: On the day of discharge, she is afebrile, heart rate 80, respirations 18, oxygen saturation 94% on room air, blood pressure 148/66. CARDIOVASCULAR SYSTEM: S1 and S2 plus. RESPIRATORY SYSTEM: Normal vesicular breath sounds. ABDOMEN: Soft and nontender. Bowel sounds heard in all quadrants. EXTREMITIES: Without cyanosis or clubbing. CENTRAL NERVOUS SYSTEM: Grossly nonfocal. DISCHARGE MEDICATIONS: 1. Cardizem CD 120 mg in the morning plus 180 mg for a total of 300 mg. 2. Fluoxetine 20 mg daily. 3. Toprol-XL 100 mg at noon. 4. Pantoprazole 40 mg daily. 5. Seroquel 25 mg at 5 o'clock and warfarin 5 mg a day. Heart healthy diet. Orthopedic precautions. Family has been instructed to call me with any questions or concerns. This note is to serve as [id number] for the patient. Home health. The patient is homebound. She does not drive. She meets criteria for home health and fci due to her being on warfarin, and her history of the atrial fibrillation. She also needs continued physical therapy and occupational therapy per therapy recommendation here. Job ID: [id number]
== END 2020-03-10 11:06 | disposition home health service (06) | DRG 559 ==
LOC: NAV ACUTE 12:44
PROVIDERS: ADMIT Internal Medicine; ATTEND Internal Medicine
DX: Z47.89 Encounter for other orthopedic aftercare (principal); J96.01 Acute respiratory failure with hypoxia; R13.19 Other dysphagia; E78.5 Hyperlipidemia, unspecified; F41.9 Anxiety disorder, unspecified; F32.9 Major depressive disorder, single episode, unspecified; R33.9 Retention of urine, unspecified; M19.90 Unspecified osteoarthritis, unspecified site; R41.89 Other symptoms and signs involving cognitive functions and awareness; I10 Essential (primary) hypertension; I48.0 Paroxysmal atrial fibrillation; K59.00 Constipation, unspecified; Z79.01 Long term (current) use of anticoagulants; I69.391 Dysphagia following cerebral infarction; Z85.3 Personal history of malignant neoplasm of breast; S72.001D Fracture of unspecified part of neck of right femur, subsequent encounter for closed fracture with routine healing; Z88.0 Allergy status to penicillin; Z88.8 Allergy status to other drugs, medicaments and biological substances
CPT/HCPCS: 36415; 80048; 80053; 81001; 85025; 85610; 87077; 87086; 87186; J1630; J1650